=== PATIENT | female | born 1955 | race Caucasian/White ===

== ENCOUNTER 2016-12-01 20:12 | Emergency (ER) | payer OTHER ==
[2016-12-01 21:00] VITALS: TEMP 98.5; BMI 47.5
--- NOTE | 2016-12-01 21:29 | PDOC ---
History of Present Illness - General History Source: Patient Exam Limitations: No Limitations - History of Present Illness Initial Comments: 12/01/16 22:11 The patient is a 61 year old female, with a significant past medical history of CAD s/p cardiac stent, GERD, HTN, HLD, diabetes and fatty liver, who presents to the emergency department with nasal congestion, chest congestion, cough, shortness of breath and headache for the past 3 days. She describes her headache as ranging from mild to moderate, without radiation or modifying factors. She also reports a subjective fever and abdominal cramping associated with her chief complaint. She describes her cough as productive of a green sputum. The patient denies dizziness. Denies fever, chills, nausea, vomit, diarrhea and constipation. Denies dysuria, frequency, urgency and hematuria. Allergies: Advil, ibuprofen Past surgical history: Cholecystectomy, cardiac stent (x1) Social history: No alcohol, tobacco or drug use reported <Sean Lindsay - Last Filed: 12/01/16 22:11> <Jayy Diaz - Last Filed: 12/01/16 23:39> - General Chief Complaint: Shortness of Breath Stated Complaint: SHORTNESS OF BREATH Time Seen by Provider: 12/01/16 21:08 Past History <Sean Lindsay - Last Filed: 12/01/16 22:11> - Past Medical History Anemia: No Asthma: No Cancer: No Cardiac Disorders: Yes (CORONARY ATHEROSCLEROSIS) CVA: No COPD: No CHF: No Dementia: No Diabetes: Yes (IDDM ) GI Disorders: Yes (GERD,NON ULCER DYSPEPSIA) Disorders: No HTN: Yes Hypercholesterolemia: Yes Liver Disease: Yes (fatty liver) Seizures: No Thyroid Disease: No - Surgical History Abdominal Surgery: No Appendectomy: No Cardiac Surgery: Yes (CARDIAC STENT 1X 2004) Cholecystectomy: Yes (2007) Lung Surgery: No Neurologic Surgery: No Orthopedic Surgery: No - Psycho/Social/Smoking Cessation Hx Anxiety: No Suicidal Ideation: No Smoking Status: No Smoking History: Never smoked Have you smoked in the past 12 months: No Number of Cigarettes Smoked Daily: 0 If you are a former smoker, when did you quit?: 2004 Information on smoking cessation initiated: No Hx Alcohol Use: No Drug/Substance Use Hx: No Substance Use Type: None Hx Substance Use Treatment: No <Jayy Diaz - Last Filed: 12/01/16 23:39> - Past Medical History Allergies/Adverse Reactions: Allergies Allergy/AdvReac Type Severity Reaction Status Date / Time ibuprofen Allergy palpitation Verified 12/01/16 20:59 aspirin AdvReac Mild upset Verified 12/01/16 20:59 stomach Home Medications: Ambulatory Orders Insulin Glargine,Hum.rec.anlog [Lantus (nf)] 35 units SQ HS 12/01/16 Lisinopril [Zestril] 40 mg PO DAILY 12/01/16 Metoprolol Tartrate [Lopressor] 50 mg PO BID 12/01/16 Review of Systems - Review of Systems Able to Perform ROS?: Yes Comments:: 12/01/16 22:04 CONSTITUTIONAL: No fever, no chills, no fatigue EYES: No visual changes ENT: +Nasal congestion. No ear pain CARDIOVASCULAR: No chest pain, no palpitations RESPIRATORY: +Cough, shortness of breath. GI: +Abdominal cramping. No nausea, no vomiting, no constipation, no diarrhea GENITOURINARY: No dysuria, no frequency, no hematuria MUSKULOSKELETAL: No backpain, no joint pain, no myalgias SKIN: No rash NEURO: +Headache. <Sean Lindsay - Last Filed: 12/01/16 22:11> *Physical Exam - Vital Signs Last Vital Signs Temp Pulse Resp BP Pulse Ox 98.5 F 86 18 182/97 98 12/01/16 20:56 12/01/16 20:56 12/01/16 20:56 12/01/16 20:56 12/01/16 20:56 - Physical Exam Comments: 12/01/16 22:04 CONSTITUTIONAL: +Morbidly obese, in no apparent distress HEAD: Normocephalic; atraumatic EYES: PERRL; EOM intact ENMT: External appears normal; normal oropharynx NECK: Supple; non-tender; no cervical lymphadenopathy CARD: Normal S1, S2; no murmurs, rubs, or gallops RESP: Normal chest excursion with respiration; breath sounds clear and equal bilaterally; no wheezes, rhonchi, or rales ABD: Soft, non-distended; non-tender; no palpable organomegaly, no palpable hernias EXT: Normal ROM in all four extremities; non-tender to palpation; distal pulses intact SKIN: Warm, dry, no rash NEURO: No focal neurological deficiencies. <Sean Lindsay - Last Filed: 12/01/16 22:11> - Vital Signs Last Vital Signs Temp Pulse Resp BP Pulse Ox 98.5 F 86 18 182/97 98 12/01/16 20:56 12/01/16 20:56 12/01/16 20:56 12/01/16 20:56 12/01/16 20:56 <Jayy Diaz - Last Filed: 12/01/16 23:39> Medical Decision Making - Medical Decision Making 12/01/16 23:37 Patient is a well-appearing 61-year-old female who presents with flulike symptoms for the past 3-4 days. In the ER, patient is awake and alert, nontoxic- appearing, afebrile, mildly hypertensive, with otherwise normal vital signs. Patient is noted to be influenza a or B-. Chest x-ray reveals a questionable left lingular infiltrate. Patient's curb 65 score is 0 patient will be discharged with Zithromax with PMD follow-up. <Jayy Diaz - Last Filed: 12/01/16 23:39> *DC/Admit/Observation/Transfer - Attestations Scribe Attestion: 12/01/16 22:04 Documentation prepared by Sean Lindsay, acting as medical officer for Jayy Diaz MD <Sean Lindsay - Last Filed: 12/01/16 22:11> - Attestations Physician Attestion: 12/01/16 23:36 The documentation was prepared by the scribe under my direct supervision. I have reviewed the documentation which correctly represents the findings, medical decision-making and critical action taken by me. <Jayy Diaz - Last Filed: 12/01/16 23:39> Diagnosis at time of Disposition: Acute bronchitis Qualifiers: Bronchitis organism: unspecified organism Qualified Code(s): J20.9 - Acute bronchitis, unspecified - Discharge Dispostion Disposition: HOME Condition at time of disposition: Stable - Referrals Referrals: Kristen Brown MD [Primary Care Provider] - - Patient Instructions Printed Discharge Instructions: DI for Acute Bronchitis
[2016-12-01] MEDS ORDERED: ACETAMINOPHEN 325 MG TABLET (FP) PO ONE (23:16)
[2016-12-01] MEDS ORDERED: ACETAMINOPHEN 325 MG TABLET (FP) ONE (23:32)
[2016-12-01 23:50] VITALS: BP 166/79; PULSE 84
--- NOTE | 2016-12-02 17:07 | EKG ---
Test Reason : Blood Pressure : / mmHG Vent. Rate : 071 BPM Atrial Rate : 071 BPM P-R Int : 162 ms QRS Dur : 088 ms QT Int : 392 ms P-R-T Axes : 049 -01 020 degrees QTc Int : 425 ms NORMAL SINUS RHYTHM MINIMAL VOLTAGE CRITERIA FOR LVH, MAY BE NORMAL VARIANT BORDERLINE ECG WHEN COMPARED WITH ECG OF 13-NOV-2015 03:02, NO SIGNIFICANT CHANGE WAS FOUND Confirmed by ADAM SHEPHERD, ELVIRA ([id number]) on 12/02/2016 5:07:21 PM Referred By: Confirmed By:ELVIRA MEDINA MD
--- NOTE | 2016-12-06 16:05 | EKG ---
Test Reason : Blood Pressure : / mmHG Vent. Rate : 096 BPM Atrial Rate : 096 BPM P-R Int : 154 ms QRS Dur : 084 ms QT Int : 350 ms P-R-T Axes : 040 -02 016 degrees QTc Int : 442 ms NORMAL SINUS RHYTHM POSSIBLE LEFT ATRIAL ENLARGEMENT BORDERLINE ECG WHEN COMPARED WITH ECG OF 13-NOV-2015 03:02, NO SIGNIFICANT CHANGE WAS FOUND Confirmed by MELVIN GOINS MD ([id number]) on 12/06/2016 4:05:23 PM Referred By: Confirmed By:EMLVIN GOINS MD
== END 2016-12-01 23:50 | disposition home or self-care (01) ==
LOC: SUPCPDRO 20:12 → JER 20:12
DX: J20.9 Acute bronchitis, unspecified (principal); E11.9 Type 2 diabetes mellitus without complications; Z79.4 Long term (current) use of insulin; I10 Essential (primary) hypertension; E78.00 Pure hypercholesterolemia, unspecified; Z95.5 Presence of coronary angioplasty implant and graft; Z87.891 Personal history of nicotine dependence; K76.0 Fatty (change of) liver, not elsewhere classified; K21.9 Gastro-esophageal reflux disease without esophagitis
CPT/HCPCS: 71020-TC; 87804; 93005; 93010; 99283-25

== ENCOUNTER 2018-07-05 20:44 | Observation (INO) | payer OTHER ==
--- NOTE | 2018-07-05 20:57 | PDOC ---
Rapid Medical Evaluation Chief Complaint: Chest Pain Time Seen by Provider: 07/05/18 20:51 Medical Evaluation: Allergies Allergy/AdvReac Type Severity Reaction Status Date / Time ibuprofen Allergy palpitation Verified 12/01/16 20:59 aspirin AdvReac Mild upset Verified 12/01/16 20:59 stomach 07/05/18 20:52 shortness of breath on the plane en route to [place] from [place] 2 days ago . today with right thigh pain radiating from hip to knee and right sided chest pain. took one baby aspirin prior to arrival PE: patient alert ox 3. breath sounds clear. A: chest pain , right thigh pain P; labs, d- dimer Patient to the ER for further management 07/05/18 20:57 Discharge Disposition - Diagnosis Chest pain at rest, Right thigh pain - Referrals - Patient Instructions - Post Discharge Activity
[2018-07-05 21:23] VITALS: BMI 39.3
--- NOTE | 2018-07-05 21:52 | PDOC ---
History of Present Illness - History of Present Illness Initial Comments: 07/05/18 22:22 Patient is a 63 year old female with a significant past medical history of HTN, DM2, Anemia, CAD and Depression. Chronic shoulder him, who presents to the ED with complaints of right sided chest pain that began yesterday afternoon. Patient reports experiencing right sided chest pain as well as associated symptoms of right sided inner leg pain that she states radiates up towards her groin, head pain. She reports returning from [place] on Tuesday where she states she experiencing sudden Sob while on the plane. Denies nausea, vomiting. Denies fevers, chills. Denies contact with sick individuals, out of state travelling. Denies dysuria, hematuria. Denies diarrhea , constipation. Denies any other symptoms. Allergies: Ibuprofen, aspirin. Social history: Former smoker. No alcohol. No illicit drugs. Surgical history: Cardiac stent, tubal ligation and right sided biopsy, and tubal light, PMD: None <Rafita Bell - Last Filed: 07/05/18 22:22> - General History Source: Patient Exam Limitations: No Limitations <Anitha Tavares - Last Filed: 07/06/18 04:10> - General Chief Complaint: Chest Pain Stated Complaint: DIABETIC, LT TOE INJURY, PAIN Time Seen by Provider: 07/05/18 20:51 Past History <Rafita Bell - Last Filed: 07/05/18 22:22> - Past Medical History Anemia: No Asthma: No Cancer: No Cardiac Disorders: Yes (CORONARY ATHEROSCLEROSIS) CVA: No COPD: No CHF: No Dementia: No Diabetes: Yes (IDDM ) GI Disorders: Yes (GERD,NON ULCER DYSPEPSIA) Disorders: No HTN: Yes Hypercholesterolemia: Yes Liver Disease: Yes (fatty liver) Seizures: No Thyroid Disease: No - Surgical History Abdominal Surgery: No Appendectomy: No Cardiac Surgery: Yes (CARDIAC STENT 1X 2004) Cholecystectomy: Yes (2007) Lung Surgery: No Neurologic Surgery: No Orthopedic Surgery: No - Suicide/Smoking/Psychosocial Hx Smoking Status: No Smoking History: Never smoked Have you smoked in the past 12 months: No Number of Cigarettes Smoked Daily: 0 If you are a former smoker, when did you quit?: 2004 Information on smoking cessation initiated: No Hx Alcohol Use: No Drug/Substance Use Hx: No Substance Use Type: None Hx Substance Use Treatment: No <Anitha Tavares - Last Filed: 07/06/18 04:10> - Past Medical History Allergies/Adverse Reactions: Allergies Allergy/AdvReac Type Severity Reaction Status Date / Time ibuprofen Allergy palpitation Verified 07/05/18 21:23 aspirin AdvReac Mild upset Verified 07/05/18 21:23 stomach Home Medications: Ambulatory Orders Insulin Glargine,Hum.rec.anlog [Lantus (nf)] 25 units SQ HS 12/01/16 Lisinopril [Zestril] 40 mg PO DAILY 12/01/16 Cholecalciferol (Vitamin D3) [Vitamin D3] 50,000 unit PO WEEKLY 12/13/16 Glyburide 2.5 mg PO BID 12/13/16 Linagliptin [Tradjenta] 5 mg PO DAILY 12/13/16 Metoprolol Succinate [Toprol Xl -] 50 mg PO DAILY 12/13/16 Simvastatin [Zocor -] 40 mg PO HS 12/13/16 Vitamin B Complex [B Complex] 1 each PO DAILY 12/13/16 metFORMIN HCL [Glucophage -] 500 mg PO BID 12/13/16 Amlodipine Besylate [Norvasc -] 5 mg PO DAILY 08/17/17 Cyclobenzaprine HCl [Flexeril 10 mg] 10 mg PO BID PRN #60 tablet 05/25/18 Docusate Sodium [Colace -] 100 mg PO TID #90 capsule 05/25/18 Oxycodone HCl/Acetaminophen [Percocet 5-325 mg Tablet] 1 tab PO TID PRN #70 tab MDD 3 05/25/18 Cyclobenzaprine HCl [Flexeril -] 10 mg PO HS PRN MDD 10 mg 07/06/18 Review of Systems - Review of Systems Able to Perform ROS?: Yes Comments:: 07/05/18 22:22 GENERAL/CONSTITUTIONAL: No: fever, chills, weakness, loss of appetite. HEAD, EYES, EARS, NOSE AND THROAT: No: change in vision, ear pain, discharge, sore throat, throat swelling. CARDIOVASCULAR: +right sided chest pain. No: chest pain, lightheadedness, palpitations, syncope RESPIRATORY: +shortness of breath. No: cough, wheezing, hemoptysis, stridor. GASTROINTESTINAL: No: nausea, vomiting, abdominal cramping, diarrhea, rectal bleeding, constipation. GENITOURINARY: No: dysuria, hematuria, frequency, urgency, flank pain. MUSCULOSKELETAL: +right upper thigh pain. No: back pain, neck pain, joint pain SKIN: No: lesions, pallor, rash or easy bruising. NEUROLOGIC: No: headache, vertigo, paresthesias, weakness ENDOCRINE: No: unexplained weight gain or loss HEMATOLOGIC/LYMPHATIC: No: anemia, easy bleeding, swelling nodes <Rafita Bell - Last Filed: 07/05/18 22:22> *Physical Exam - Vital Signs Last Vital Signs Temp Pulse Resp BP Pulse Ox 97.7 F 81 16 208/103 H 99 07/05/18 20:50 07/05/18 20:50 07/05/18 20:50 07/05/18 20:50 07/05/18 20:50 - Physical Exam Comments: 07/05/18 22:22 GENERAL: The patient is in no acute distress. HEAD: Normal with no signs of trauma. EYES: PERRLA, EOMI, sclera anicteric, conjunctiva clear. ENT: Ears normal, nares patent, oropharynx clear without exudates. Moist mucous membranes. NECK: Normal range of motion, supple without lymphadenopathy, JVD, or masses. LUNGS: Breath sounds equal, clear to auscultation bilaterally. No wheezes, and no crackles. HEART:Regular rate and rhythm, normal S1 and S2 without murmur, rub or gallop. ABDOMEN: Soft, nontender, normoactive bowel sounds. No guarding, no rebound. EXTREMITIES: +Pain to right proximal thigh. +Pain to right groin. +2 plus dorsalis pedis pulses. Normal range of motion, no edema. No clubbing or cyanosis. No erythema, or tenderness. NEUROLOGICAL: Cranial nerves II through XII grossly intact. Normal speech. No focal neurological deficits. MUSCULOSKELETAL: Back nontender to palpation, no CVA tenderness SKIN: Warm, Dry, normal turgor, no rashes or lesions noted. <Rafita Bell - Last Filed: 07/05/18 22:22> - Vital Signs Last Vital Signs Temp Pulse Resp BP Pulse Ox 97.7 F 81 16 208/103 H 99 07/05/18 20:50 07/05/18 20:50 07/05/18 20:50 07/05/18 20:50 07/05/18 20:50 <Anitha Tavares - Last Filed: 07/06/18 04:10> Heart Score/ECG Review - History History: Slightly suspicious - Electrocardiogram EKG: Normal - Age Age: 45-65 - Risk Factors Risk Factors Heart Score: Yes Hx Hypertension, Yes Hx Diabetes, Yes Hx Obesity Based on the list above the patient has:: >/=3 risk factors or Hx atherosclerotic disease - Troponin Troponin: </= normal limit - Score Heart Score - Total: 3 <Anitha Tavares - Last Filed: 07/06/18 04:10> ED Treatment Course - LABORATORY CBC & Chemistry Diagram: 07/05/18 22:50 07/05/18 22:50 <Anitha Tavares - Last Filed: 07/06/18 04:10> Medical Decision Making - Medical Decision Making 07/05/18 22:36 Ms Luna is a 63 yo F presenting with a complaint of: Right sided chest pain - present 2 days ago, self resolved, no radiation, no exertional component Pt noted right sided thigh pain with radiated up to her groin, yesterday and today (pain has improved but has not resolved) Pt s/p recent flight from [place] (2 days ago) No fevers, chills cough Pt has a h/o ? TIA vs CVA (right sided weakness - 2004; ACS s/p RCA stent - 2004 ) Exam: RRR CTA No chest wall tenderness to palpation No abdominal tenderness Right thigh and groin tender to palpation 2+ DP bilaterally EKG: NSR rate of 71 bpm, axis nml, intervals nml, no st elevation or elevation, t waves upright 07/06/18 00:14 Repeat BP : 170s/80 Laboratory Tests 07/05/18 07/05/18 22:50 22:50 WBC 6.4 Hgb 13.2 Hct 39.6 Plt Count 203 BUN 16 Creatinine 0.9 AST 38 H ALT 99 H Creatine Kinase 267 H Troponin I 0.10 H B-Natriuretic Peptide 80.4 07/06/18 00:[address] and claimed that she is allergic to contrast Pt states her allergy was that she felt sick and had to stay in the hospital for 1 week after she had contrast She refuses coumadin, plavix, anticoagulants as in the past she has taken it and it resulted in bruising Will place on observation to tele given h/o ACS, HTN, HLD 07/06/18 01:11 07/06/18 03:24 Duplex NEGATIVE 07/06/18 04:08 <Anitha Tavares - Last Filed: 07/06/18 04:10> *DC/Admit/Observation/Transfer - Attestations Scribe Attestion: 07/05/18 22:23 Documentation prepared by Rafita Bell, acting as medical technicians for Anitha Tavares MD. <Rafita Bell - Last Filed: 07/05/18 22:22> - Discharge Dispostion Decision to Admit order: Yes <Anitha Tavares - Last Filed: 07/06/18 04:10> Diagnosis at time of Disposition: Chest pain at rest, Right thigh pain - Discharge Dispostion Condition at time of disposition: Stable
[2018-07-05 23:14] LABS: EOS % 3.5 % (0-4.5); HEMATOCRIT 39.6 % (32.4-45.2); HEMOGLOBIN 13.2 GM/dL (10.7-15.3); LYMPH % 29.5 % (8-40); MCH 29.8 pg (25.7-33.7); MCHC 33.4 g/dl (32.0-36.0); MEAN CELL VOLUME 89.5 fl (80-96); MEAN PLT VOLUME 9.4 fl (7.5-11.1); MONO % 8.3 % (3.8-10.2); NEUT % 57.7 % (42.8-82.8); PLATELET COUNT 203 K/MM3 (134-434); RBC 4.43 M/mm3 (3.60-5.2); WHITE BLOOD COUNT 6.4 K/mm3 (4.0-10.0)
[2018-07-06 00:06] LABS: ALBUMIN 3.8 g/dl (3.4-5.0); ALK PHOS 114 U/L (45-117); ANION GAP 8 MMOL/L (8-16); BILIRUBIN,TOTAL 0.4 mg/dL (0.2-1); BLOOD UREA NITROGEN 16 mg/dL (7-18); CALCIUM 8.5 mg/dL (8.5-10.1); CHLORIDE 105 mmol/L (98-107); CO2 28 mmol/L (21-32); CREATININE 0.9 mg/dL (0.55-1.3); GLUCOSE,RANDOM 153 mg/dL (74-106); MAGNESIUM 2.2 mg/dL (1.8-2.4); N-TERMINAL BNP 80.4 pg/ml (5-125); POTASSIUM 4.1 mmol/L (3.5-5.1); SGOT/AST 38 U/L (15-37); SGPT/ALT 99 U/L (13-61); SODIUM 140 mmol/L (136-145); TOT PROT 7.4 g/dl (6.4-8.2)
--- NOTE | 2018-07-06 02:51 | HP ---
CHIEF COMPLAINT: R leg pain x1 day PCP: HISTORY OF PRESENT ILLNESS: Pt is a 63 Yo F with PMHx HLD, HTN, CAD s/p stents 2004, DM, Depression, GERD, presenting with a day's hx of R LLE pain. Pt reports a constant dull pain radiating from R thigh to R groin area. The pain was severe enough to prevent her from walking today. She attempted rubbing the area, but denies any known relieving factors. No hx of trauma, no swelling, no bug bites. No hx of similar pain in past. Pt reports recently traveling from [place] [employer] yesterday, where she had a transient episode of SOB with exertion. She also reported right sided breast pain. No associated breast trauma , no radiation, no shortness of breast. Pain is also present on deep palpation of the R breast. She had a biopsy done several years ago and followed up at the breast cancer center in [place], for which she reports it a normal follow up. No hx of syncope, palpitations or chest pain. No headache, no fevers. Pt denies taking her bp medications today. She however said she took ASA today when she felt the leg pain , with no adverse effects despite the documentation that she is allergic. Patient presented to ED today and was noted to have an elevated BP of 208/103. She was not hypoxic or tachycardic at presentation. Per ED noted the blood pressure dropped (without medication). Pt initially refused to get contrast for a CTA in the ED. Per ED she also reported using anticoagulation in the past and would not want to be anticoagulated. Pt is unsure if she has stents, but per chart she is s/p stents in 2004. She described a previous nuclear stress test, unsure when ER course was notable for: (1)Trops-0.10, BP 208/103, EKG- NSR, Vent rate-71bpm, nl axis, no hayde/std, nl DE interval, QTC 443 (2) CXR- yet to be read, by my read, shows no acute pathology (3) LE duplex Recent Travel: PAST MEDICAL HISTORY: As in HPI PAST SURGICAL HISTORY: Cardiac stent, tubal ligation and right breast biopsy, Social History: Smoking: Denies Alcohol:Denies Drugs: Denies Family History: Allergies ibuprofen Allergy (Verified 07/05/18 21:23) palpitation aspirin Adverse Reaction (Mild, Verified 07/05/18 21:23) upset stomach HOME MEDICATIONS: Home Medications Medication Instructions Recorded Insulin Glargine,Hum.rec.anlog 25 units SQ HS 12/01/16 [Lantus (nf)] Lisinopril [Zestril] 40 mg PO DAILY 12/01/16 Cholecalciferol (Vitamin D3) 50,000 unit PO WEEKLY 12/13/16 [Vitamin D3] Glyburide 2.5 mg PO BID 12/13/16 Linagliptin [Tradjenta] 5 mg PO DAILY 12/13/16 Metoprolol Succinate [Toprol Xl -] 50 mg PO DAILY 12/13/16 Simvastatin [Zocor -] 40 mg PO HS 12/13/16 Vitamin B Complex [B Complex] 1 each PO DAILY 12/13/16 metFORMIN HCL [Glucophage -] 500 mg PO BID 12/13/16 Amlodipine Besylate [Norvasc -] 5 mg PO DAILY 08/17/17 Cyclobenzaprine HCl [Flexeril -] 10 mg PO TID #21 tablet 05/25/18 Cyclobenzaprine HCl [Flexeril 10 10 mg PO BID PRN #60 tablet 05/25/18 mg] Docusate Sodium [Colace -] 100 mg PO TID #90 capsule 05/25/18 Oxycodone HCl/Acetaminophen 1 tab PO TID PRN #70 tab MDD 3 05/25/18 [Percocet 5-325 mg Tablet] REVIEW OF SYSTEMS CONSTITUTIONAL: Absent: fever, chills, diaphoresis, generalized weakness, malaise, loss of appetite, weight change HEENT: Absent: rhinorrhea, nasal congestion, throat pain, throat swelling, difficulty swallowing, mouth swelling, ear pain, eye pain, visual changes CARDIOVASCULAR: Absent: chest pain, syncope, palpitations, irregular heart rate, lightheadedness , peripheral edema RESPIRATORY: Absent: cough, shortness of breath, dyspnea with exertion, orthopnea, wheezing, stridor, hemoptysis GASTROINTESTINAL: Absent: abdominal pain, abdominal distension, nausea, vomiting, diarrhea, constipation, melena, hematochezia GENITOURINARY: Absent: dysuria, frequency, urgency, hesitancy, hematuria, flank pain, genital pain MUSCULOSKELETAL: Absent: myalgia, arthralgia, joint swelling, back pain, neck pain SKIN: Absent: rash, itching, pallor HEMATOLOGIC/IMMUNOLOGIC: Absent: easy bleeding, easy bruising, lymphadenopathy, frequent infections ENDOCRINE: Absent: unexplained weight gain, unexplained weight loss, heat intolerance, cold intolerance NEUROLOGIC: Absent: headache, focal weakness or paresthesias, dizziness, unsteady gait, seizure, mental status changes, bladder or bowel incontinence PSYCHIATRIC: Absent: anxiety, depression, suicidal or homicidal ideation, hallucinations. PHYSICAL EXAMINATION Vital Signs - 24 hr 07/05/18 07/06/18 20:50 01:47 Temperature 97.7 F Pulse Rate 81 Pulse Rate [ 88 Left Radial] Respiratory 16 19 Rate Blood Pressure 208/103 H Blood Pressure 172/94 H [Right Arm] O2 Sat by Pulse 99 Oximetry (%) GENERAL: Obese, Awake, alert, and fully oriented, in no acute respiratory distress. EYES: Pupils equal, round and reactive to light, extraocular movements intact, EARS, NOSE, THROAT: Moist mucous membranes. NECK: supple LUNGS: Breath sounds equal, clear to auscultation bilaterally. No wheezes, and no crackles. HEART: Regular rate and rhythm, normal S1 and S2 without murmur, rub or gallop. ABDOMEN: Obese, Soft, nontender, not distended, normoactive bowel sounds, MUSCULOSKELETAL: Normal range of motion at all joints. LOWER EXTREMITIES: 2+ pulses, warm, well-perfused. No calf tenderness. No peripheral edema. NEUROLOGICAL: AAOx3, no lateralizing signs. Symmetrical face, able to move all extremities. Cranial nerves II-XII intact. Normal speech. PSYCHIATRIC: Close to tears CBC, BMP 07/05/18 22:50 07/05/18 22:50 Laboratory Results - last 24 hr 07/05/18 07/05/18 07/05/18 22:50 22:50 22:50 WBC 6.4 RBC 4.43 Hgb 13.2 Hct 39.6 MCV 89.5 MCH 29.8 MCHC 33.4 RDW 14.0 Plt Count 203 MPV 9.4 Absolute Neuts (auto) 3.7 Neutrophils % 57.7 Lymphocytes % 29.5 Monocytes % 8.3 Eosinophils % 3.5 Basophils % 1.0 Nucleated RBC % 0 PT with INR Cancelled INR Cancelled D-Dimer Cancelled Sodium Potassium Chloride Carbon Dioxide Anion Gap BUN Creatinine Creat Clearance w eGFR Random Glucose Calcium Magnesium Total Bilirubin AST ALT Alkaline Phosphatase Creatine Kinase Creatine Kinase Index CK-MB (CK-2) Troponin I B-Natriuretic Peptide Total Protein Albumin 07/05/18 22:50 WBC RBC Hgb Hct MCV MCH MCHC RDW Plt Count MPV Absolute Neuts (auto) Neutrophils % Lymphocytes % Monocytes % Eosinophils % Basophils % Nucleated RBC % PT with INR INR D-Dimer Sodium 140 Potassium 4.1 Chloride 105 Carbon Dioxide 28 Anion Gap 8 BUN 16 Creatinine 0.9 Creat Clearance w eGFR > 60 Random Glucose 153 H Calcium 8.5 Magnesium 2.2 Total Bilirubin 0.4 AST 38 H ALT 99 H Alkaline Phosphatase 114 Creatine Kinase 267 H Creatine Kinase Index 0.8 CK-MB (CK-2) 2.3 Troponin I 0.10 H B-Natriuretic Peptide 80.4 Total Protein 7.4 Albumin 3.8 Ambulatory Orders Insulin Glargine,Hum.rec.anlog [Lantus (nf)] 25 units SQ HS 12/01/16 Lisinopril [Zestril] 40 mg PO DAILY 12/01/16 Cholecalciferol (Vitamin D3) [Vitamin D3] 50,000 unit PO WEEKLY 12/13/16 Glyburide 2.5 mg PO BID 12/13/16 Linagliptin [Tradjenta] 5 mg PO DAILY 12/13/16 Metoprolol Succinate [Toprol Xl -] 50 mg PO DAILY 12/13/16 Simvastatin [Zocor -] 40 mg PO HS 12/13/16 Vitamin B Complex [B Complex] 1 each PO DAILY 12/13/16 metFORMIN HCL [Glucophage -] 500 mg PO BID 12/13/16 Amlodipine Besylate [Norvasc -] 5 mg PO DAILY 08/17/17 Cyclobenzaprine HCl [Flexeril 10 mg] 10 mg PO BID PRN #60 tablet 05/25/18 Docusate Sodium [Colace -] 100 mg PO TID #90 capsule 05/25/18 Oxycodone HCl/Acetaminophen [Percocet 5-325 mg Tablet] 1 tab PO TID PRN #70 tab MDD 3 05/25/18 Cyclobenzaprine HCl [Flexeril -] 10 mg PO HS PRN MDD 10 mg 07/06/18 Current Medications Acetaminophen (Tylenol -) 325 mg PO Q8H PRN PRN Reason: PAIN LEVEL 6-10 Amlodipine Besylate (Norvasc -) 5 mg PO DAILY [facility] Aspirin (Ecotrin -) 81 mg PO DAILY [facility] Atorvastatin Calcium (Lipitor -) 20 mg PO HS [facility] Cyclobenzaprine HCl (Flexeril -) 10 mg PO HS PRN PRN Reason: BACK PAIN Docusate Sodium (Colace -) 100 mg PO TID [facility] Insulin Aspart (Novolog Vial Sliding Scale -) 1 vial SQ ACHS [facility]; Protocol Insulin Detemir (Levemir Vial) 25 units SQ HS [facility] Lisinopril (Prinivil) 40 mg PO DAILY [facility] Metoprolol Succinate (Toprol Xl -) 50 mg PO DAILY [facility] Multivitamins (Total B With C -) 1 each PO DAILY [facility] Non-Formulary Medication (Cholecalciferol (Vitamin D3) [Vitamin D3]) 50,000 unit PO WEEKLY [facility] Oxycodone HCl (Roxicodone -) 5 mg PO Q8H PRN PRN Reason: PAIN LEVEL 6-10 ASSESSMENT/PLAN: Pt is a 63 Yo F with PMHx HLD, HTN, CAD s/p stents 2004, DM, Depression, GERD, presenting with a day's hx of R LLE pain. Pt reports a constant dull pain radiating from R thigh to R groin area. Atypical chest pain R/O ACS R breast pain,non pleuritic, reproducible, hx of CAD with stents trops 0.1 trend trops EKG wnl Cardiology consult- Dr Otoole R/O PE Recent trip from [place], R leg pain Hx of SOB on plane, R breast pain CTA R leg pain R/O DVT Duplex US - no DVTs bilaterally Well's Score for PE- 4 HTNsive emergency, Pt with elevated trops, ekg wnl BP 208/103 on presentation, down to 174/93, pt did not take home meds today Cont lisinopril 40mg Amlodipine 5mg Toprol 50mg daily Amlodipine 5mg R breast pain No hx of trauma, no obvious masses, bruise or ulcers Pt had prior rt breast biopsy, not sure what it showed Breast US R/O cyst HLD, Takes simvastatin 40mg daily cont CAD s/p stents 2004, Cont ASA Toprol Lisinopril DM, ISS ACHS BGM ACHS Cont home levemir 25UHS Hold oral hypoglycemic agents Depression, No home meds noted Monitor GERD No home meds noted, monitor FEN No standing fluids Monitor lytes replete as needed DM/Sodium controlled diet PPx heparin sq Dispo: Obs tele Visit type - Emergency Visit Emergency Visit: Yes ED Registration Date: 07/06/18 Care time: The patient presented to the Emergency Department on the above date and was hospitalized for further evaluation of their emergent condition. - New Patient This patient is new to me today: Yes Date on this admission: 07/06/18 - Critical Care Critical Care patient: No
[2018-07-06] MEDS ORDERED: CYCLOBENZAPRINE HCL 10 MG TABLET (FP) PO PRN (02:54)
[2018-07-06] MEDS ORDERED: oxyCODONE HCL 5 MG TABLET PO PRN (03:18)
[2018-07-06] MEDS ORDERED: ACETAMINOPHEN 325 MG TABLET (FP) PO PRN (03:19)
--- NOTE | 2018-07-06 04:22 | PN ---
Teaching Attending Note Name of Resident: Aliya Perkins ATTENDING PHYSICIAN STATEMENT I saw and evaluated the patient. I reviewed the resident's note and discussed the case with the resident. I agree with the resident's findings and plan as documented. SUBJECTIVE: Seen and examined; she is a 63 y/o HF with a PMH as documented. She presents to the ER tonight for a variety of complaints. She has L-toenail discoloration , R-leg pain, and has R-breast pain. She is a somewhat poor historian. She was flying into town from [place] when she started to have what was initially described to me as chest pain but on further discussion with her appears to be breast pain that is reproducible with palpation of the breast. The R-leg pain starts on the medial knee and radiates up the R-side to her groin. Worse with activity, etc. Denies any brian CP or SOB. Afebrile and hemodynamically stable. Found to have a positive troponin in the ER. Initially she told me she had no cardiac history but review of her chart shows she had a stent placed <10 years ago. Echo done >5 years ago shows possible diastolic dysfunction. PMH: Chronic pain on opiates, obesity, anxiety, depression, CAD s/p PCI, DM, HLD PSH: Prior angiogram FH: Father with heart disease Social: Former smoker, no current EtOH or ilicits OBJECTIVE: VSS, labs reviewed NAD, resting in bed on RA RRR s1/2 no mgr Lungs clear but limited exam Legs enlarged bilaterally sym with no redness NT ND +BS Normal behavior, anxious mood EKG NSR with no suspicious ST-T changes ASSESSMENT AND PLAN: 1) Elevated Troponin -Atypical sx with the pain actually located in her breast on examination. Given SBP >200 this could be related to HTN emergency, however the patient does have risk factors for CAD so will need to r/o this. -Monitor tele, trend troponin, consult cardiology 2) Hypertensive Emergency -Improved to 170s; continue home meds and can use PRNs, adjusting basal meds as needed -Asx at this juncture -Check Echo 3) Leg Pain -Checking US to r/o DVT 4) Breast Pain -US breast to r/o any cysts, etc. though this wasn't palpated 5) Chronic Back Pain -Continue home meds 6) DM -SSI 7) STEVE 8) CAD -Continue home ASA, BB, statin 9) HLD -Continue home statin, check lipids Full Code
[2018-07-06] MEDS ORDERED: amLODIPine BESYLATE 5 MG TABLET (FP) ONE ×2 (05:50→11:59)
[2018-07-06] MEDS: INSULIN SLIDING SCALE (NOVOLOG) 1 VIAL SQ SCH ×4 (07:06→22:46)
[2018-07-06] MEDS ORDERED: DOCUSATE SODIUM 100 MG CAPSULE (FP) PO ONE (07:07)
[2018-07-06] MEDS ORDERED: HEPARIN NA (PORCINE) 5,000 UNITS/ML 1ML VIAL ONE (07:07)
[2018-07-06] MEDS: DOCUSATE SODIUM 100 MG CAPSULE (FP) PO SCH ×3 (07:10→22:44)
[2018-07-06] MEDS: HEPARIN NA (PORCINE) 5,000 UNITS/ML 1ML VIAL SQ SCH ×3 (07:11→22:44)
[2018-07-06] MEDS: amLODIPine BESYLATE 5 MG TABLET (FP) PO ONE ×2 (07:40)
[2018-07-06 07:42] LABS: INR 0.93 (0.83-1.09)
[2018-07-06 07:45] LABS: ACTIVATED PTT 19.8 SECONDS (25.2-36.5)
[2018-07-06] MEDS ORDERED: amLODIPine BESYLATE 5 MG TABLET (FP) PO SCH (10:00)
[2018-07-06] MEDS ORDERED: amLODIPine BESYLATE 5 MG TABLET (FP) PO ONE (10:31)
[2018-07-06] MEDS: ASPIRIN COATED 81 MG TABLET.EC PO SCH (12:16)
[2018-07-06] MEDS: LISINOPRIL 20 MG TABLET (FP) PO SCH (12:16)
--- NOTE | 2018-07-06 12:16 | EKG ---
Test Reason : Blood Pressure : / mmHG Vent. Rate : 071 BPM Atrial Rate : 071 BPM P-R Int : 160 ms QRS Dur : 090 ms QT Int : 408 ms P-R-T Axes : 047 -01 022 degrees QTc Int : 443 ms NORMAL SINUS RHYTHM WITH SINUS ARRHYTHMIA NORMAL ECG WHEN COMPARED WITH ECG OF 01-DEC-2016 22:40, NO SIGNIFICANT CHANGE WAS FOUND Confirmed by ELVIRA MEDINA MD ([id number]) on 07/06/2018 12:15:54 PM Referred By: Confirmed By:ELVIRA MEDINA MD
[2018-07-06] MEDS: VITAMIN B COMPLEX W/C COMBO TABLET (FP) PO SCH (12:17)
--- NOTE | 2018-07-06 12:32 | ECHO ---
Name: VIVIANA TAYLOR Exam:Adult Echocardiogram Study Date: 07/06/2018 08:29 AM Age: 63 yrs Reason For Study: H/O ?DIASTOLIC DYSFUNCTION,P/W HTN Height: 62 in Weight: 215 lb BSA: 2.0 m2 MMode/2D Measurements & Calculations IVSd: 1.3 cm Ao root diam: 4.1 cm LVIDd: 4.8 cm LA dimension: 4.1 cm LVIDs: 2.8 cm ACS: 1.9 cm LVPWd: 1.2 cm IVSs: 1.6 cm LVPWs: 1.4 cm EDV(Teich): 108.5 ml ESV(Teich): 29.8 ml Doppler Measurements & Calculations MV E max rogelio: 42.3 cm/sec Ao V2 max: 107.2 cm/sec MV A max rogelio: 60.7 cm/sec Ao max P.6 mmHg MV E/A: 0.70 Ao V2 mean: 69.2 cm/sec Ao mean P.2 mmHg Ao V2 VTI: 19.5 cm TR max rogelio: 207.0 cm/sec Med Peak E' Rogelio: 5.2 cm/sec TR max P.1 mmHg Med E/e': 8.2 Lat Peak E' Rogelio: 6.4 cm/sec Lat E/e': 6.6 Procedure A complete two-dimensional transthoracic echocardiogram was performed (2D, M-mode, Doppler and color flow Doppler). Left Ventricle There is mild concentric left ventricular hypertrophy. The left ventricular ejection fraction is norm al. Ejection Fraction = 55-60%. The left ventricular wall motion is normal. Right Ventricle The right ventricle is normal in size and function. Atria Normal left and right atrial size and function. Mitral Valve There is no mitral regurgitation noted. Tricuspid Valve There is trace tricuspid regurgitation. There was insufficient TR detected to calculate RV systolic p ressure. Aortic Valve The aortic valve is trileaflet. No hemodynamically significant valvular aortic stenosis. No aortic regurgitation is present. Pulmonic Valve There is no pulmonic valvular regurgitation. Great Vessels Mild aortic root dilatation. Pericardium/Pleura There is no pericardial effusion. Interpretation Summary There is mild concentric left ventricular hypertrophy. The left ventricular ejection fraction is normal. The right ventricle is normal in size and function. There is trace tricuspid regurgitation. Mild aortic root dilatation. MD Garry Stanton 07/06/2018 12:32 PM
--- NOTE | 2018-07-06 15:30 | PN ---
Physical Exam: SUBJECTIVE: Patient seen and examined this morning in the ED. Says she experienced 10/10, cramping right thigh pain that radiated to her groin. Additionally experienced 8/10, constant, dull Right breast pain reproducible with palpation. All pains have resolved. Patient denies any trauma or rash over the areas. OBJECTIVE: Vital Signs Period Temp Pulse Resp BP Sys/Bhatia Pulse Ox Last 24 Hr 97.7 F-98.5 F 81-90 16-19 172-208/94-103 99 GENERAL: A&Ox3, NAD, Seen ambulating around the ED HEAD: NCAT EYES: PERRL, EOMI ENT: Oropharynx clear without exudates, moist mucous membranes. NECK: No JVD LUNGS: Breath sounds equal, clear to auscultation bilaterally, no wheezes HEART: Regular rate and rhythm, S1, S2 without murmur ABDOMEN: Obese, Soft, nontender, nondistended, + bowel sounds, no guarding EXTREMITIES: 2+ pulses, no edema. NEUROLOGICAL: Cranial nerves II through XII grossly intact. Normal speech, Able to ambulate without difficulty, C5-T1 and L4-S1 gross sensation intact. 5/5 muscle strength globally Laboratory Results - last 24 hr 07/05/18 07/05/18 07/05/18 07:00 22:50 22:50 WBC 6.4 Corrected WBC (auto) RBC 4.43 Hgb 13.2 Hct 39.6 MCV 89.5 MCH 29.8 MCHC 33.4 RDW 14.0 Plt Count 203 MPV 9.4 Absolute Neuts (auto) 3.7 Neutrophils % 57.7 Lymphocytes % 29.5 Monocytes % 8.3 Eosinophils % 3.5 Basophils % 1.0 Nucleated RBC % 0 Platelet Estimate Platelet Comment PT with INR Cancelled INR Cancelled PTT (Actin FS) D-Dimer 613 H Sodium Potassium Chloride Carbon Dioxide Anion Gap BUN Creatinine Creat Clearance w eGFR POC Glucometer Random Glucose Calcium Phosphorus Magnesium Total Bilirubin AST ALT Alkaline Phosphatase Creatine Kinase Creatine Kinase Index CK-MB (CK-2) Troponin I B-Natriuretic Peptide Total Protein Albumin Triglycerides Cholesterol Total LDL Cholesterol HDL Cholesterol 07/05/18 07/05/18 07/06/18 22:50 22:50 07:00 WBC Cancelled Corrected WBC (auto) Cancelled RBC Cancelled Hgb Cancelled Hct Cancelled MCV Cancelled MCH Cancelled MCHC Cancelled RDW Cancelled Plt Count Cancelled MPV Cancelled Absolute Neuts (auto) Cancelled Neutrophils % Cancelled Lymphocytes % Cancelled Monocytes % Cancelled Eosinophils % Cancelled Basophils % Cancelled Nucleated RBC % Cancelled Platelet Estimate Cancelled Platelet Comment Cancelled PT with INR INR PTT (Actin FS) D-Dimer Cancelled Sodium 140 Potassium 4.1 Chloride 105 Carbon Dioxide 28 Anion Gap 8 BUN 16 Creatinine 0.9 Creat Clearance w eGFR > 60 POC Glucometer Random Glucose 153 H Calcium 8.5 Phosphorus Magnesium 2.2 Total Bilirubin 0.4 AST 38 H ALT 99 H Alkaline Phosphatase 114 Creatine Kinase 267 H Creatine Kinase Index 0.8 CK-MB (CK-2) 2.3 Troponin I 0.10 H B-Natriuretic Peptide 80.4 Total Protein 7.4 Albumin 3.8 Triglycerides Cholesterol Total LDL Cholesterol HDL Cholesterol 07/06/18 07/06/18 07/06/18 07:00 07:00 12:51 WBC Corrected WBC (auto) RBC Hgb Hct MCV MCH MCHC RDW Plt Count MPV Absolute Neuts (auto) Neutrophils % Lymphocytes % Monocytes % Eosinophils % Basophils % Nucleated RBC % Platelet Estimate Platelet Comment PT with INR 11.00 INR 0.93 PTT (Actin FS) 19.8 L D-Dimer Sodium Cancelled Potassium Cancelled Chloride Cancelled Carbon Dioxide Cancelled Anion Gap Cancelled BUN Cancelled Creatinine Cancelled Creat Clearance w eGFR Cancelled POC Glucometer [id number] Random Glucose Cancelled Calcium Cancelled Phosphorus Cancelled Magnesium Cancelled Total Bilirubin Cancelled AST Cancelled ALT Cancelled Alkaline Phosphatase Cancelled Creatine Kinase Cancelled Creatine Kinase Index CK-MB (CK-2) Troponin I Cancelled B-Natriuretic Peptide Total Protein Cancelled Albumin Cancelled Triglycerides Cancelled Cholesterol Cancelled Total LDL Cholesterol Cancelled HDL Cholesterol Cancelled Active Medications Acetaminophen (Tylenol -) 325 mg PO Q8H PRN PRN Reason: PAIN LEVEL 6-10 Amlodipine Besylate (Norvasc -) 10 mg PO DAILY [facility] Aspirin (Ecotrin -) 81 mg PO DAILY [facility] Last Admin: 07/06/18 12:16 Dose: 81 mg Atorvastatin Calcium (Lipitor -) 40 mg PO HS [facility] Cyclobenzaprine HCl (Flexeril -) 10 mg PO HS PRN PRN Reason: BACK PAIN Docusate Sodium (Colace -) 100 mg PO TID [facility] Last Admin: 07/06/18 14:33 Dose: Not Given Ergocalciferol (Drisdol -) 50,000 unit PO Chopra@1000 [facility] Heparin Sodium (Porcine) (Heparin -) 5,000 unit SQ TID [facility] Last Admin: 07/06/18 14:33 Dose: Not Given Insulin Aspart (Novolog Vial Sliding Scale -) 1 vial SQ ACHS [facility]; Protocol Last Admin: 07/06/18 14:31 Dose: Not Given Insulin Detemir (Levemir Vial) 25 units SQ HS [facility] Lisinopril (Prinivil) 40 mg PO DAILY [facility] Last Admin: 07/06/18 12:16 Dose: 40 mg Metoprolol Succinate (Toprol Xl -) 100 mg PO DAILY [facility] Multivitamins (Total B With C -) 1 each PO DAILY [facility] Last Admin: 07/06/18 12:17 Dose: 1 each Oxycodone HCl (Roxicodone -) 5 mg PO Q8H PRN PRN Reason: PAIN LEVEL 6-10 IMAGING: -Duplex 2 legs: No evidence of deep venous thrombosis. -US R Breast: Stable right breast mass since 05/18/2013. BI-RADS Category 2: Benign. -EKG: NORMAL SINUS RHYTHM WITH SINUS ARRHYTHMIA, NORMAL ECG, VR 71, QTc 443 -ECHO: Mild concentric LVH, LVEF Is normal, RV is normal in size and function, Trace TR, Mild aortic root dilation ASSESSMENT/PLAN: 63 y/o F with PMHx HLD, HTN, CAD s/p stents 2004, DM, Depression, GERD presented with R LE and R Breast pain. #Atypical chest pain -R/O ACS -R breast pain,non pleuritic, reproducible, hx of CAD with stents -Trops 0.10 --> 0.07 -EKG Noted above -Monitor on Tele -Cardiology (Dr. Otoole) consulted #Hypertensive emergency, -208/103 on admission, Apparently patient did not take home meds -Continue Lisinopril -Started on Norvasc 5mg -Home dose Toprol increased to 100mg daily (50mg prior) -ECHO: Mild concentric LVH, LVEF Is normal, RV is normal in size and function, Trace TR, Mild aortic root dilation #R breast pain -Patient says her prior mamogram (1 month ago) and breast bx's are normal -US R Breast: Stable right breast mass since 05/18/2013. #Leg Pain -Pain has resolved -Duplex 2 legs: No evidence of deep venous thrombosis. #HLD, -Home dose Simvastatin interacts with Norvasc -Changed to Lipitor 40mg daily #CAD s/p stents 2005 -Continue home dose ASA -Continue Lisinopril, Norvasc, Toprol #DM -Home dose metformin and Tradjenta held -ISS BGM ACHS #GERD -Continue home dose Omeprazole #Constipation -Continue home dose Colace, Bisacodyl #FEN -PO Fluids -Lytes WNL -DM/Sodium controlled diet #PPx: Heparin Dispo: Obs tele Visit type - Emergency Visit Emergency Visit: Yes ED Registration Date: 07/06/18 Care time: The patient presented to the Emergency Department on the above date and was hospitalized for further evaluation of their emergent condition. - New Patient This patient is new to me today: Yes Date on this admission: 07/06/18 - Critical Care Critical Care patient: No - Discharge Referral Referred to [facility] Med P.C.: No
--- NOTE | 2018-07-06 17:37 | CON.CARD ---
Consult Consult Specialty:: Cardiology Referred by:: ER/Hospitalist Reason for Consultation:: chest pain, elevated cardiac enzymes - History of Present Illness Chief Complaint: chest kennedy, rle pain, sob History of Present Illness: 63 year old woman with pmh HTN, HLD, DMII reported CAD with stent RCA 2004 [facility] history uncertain, depression, ETT done this year that showed no ischemia but pt c/o persistent sob thus a nuclear stress test was planned but pt never followed up for it, past c/o palpitations with only PVCs seen on holter now admitted with c/o R breast pain, sob, and RLE pain after flying back from [place] Tuesday. Pt found to be severely HTN in ER Pt seen and examined in the ER in [place]. currently no complaints. no chest pain but R breast tissue pain, she has an appointment with breast center tomorrow. chronic sob with exacerbation during plane flight. no further RLE pain. - History Source History Provided By: Patient, Medical Record Limitations to Obtaining History: No Limitations - Past Medical History Cardio/Vascular: Yes: HTN, Hyperlipdemia - Alcohol/Substance Use Hx Alcohol Use: No - Smoking History Smoking history: Never smoked Have you smoked in the past 12 months: No Aproximately how many cigarettes per day: 0 If you are a former smoker, when did you quit?: 2004 - Social History Usual Living Arrangement: Alone ADL: Independent History of Recent Travel: No Home Medications - Allergies Allergies/Adverse Reactions: Allergies Allergy/AdvReac Type Severity Reaction Status Date / Time ibuprofen Allergy palpitation Verified 07/05/18 21:23 aspirin AdvReac Mild upset Verified 07/05/18 21:23 stomach - Home Medications Home Medications: Ambulatory Orders Lisinopril [Zestril] 40 mg PO DAILY 12/01/16 Linagliptin [Tradjenta] 5 mg PO DAILY 12/13/16 Metoprolol Succinate [Toprol Xl -] 50 mg PO DAILY 12/13/16 Simvastatin [Zocor -] 40 mg PO HS 12/13/16 metFORMIN HCL [Glucophage -] 500 mg PO DAILY 12/13/16 Docusate Sodium [Colace -] 100 mg PO TID #90 capsule 05/25/18 Oxycodone HCl/Acetaminophen [Percocet 5-325 mg Tablet] 1 tab PO TID PRN #70 tab MDD 3 05/25/18 Bisacodyl [Laxative] 5 mg PO BID 07/06/18 Chlorthalidone 25 mg PO DAILY 07/06/18 Cyclobenzaprine HCl [Flexeril -] 10 mg PO BID PRN MDD 10 mg 07/06/18 Omeprazole 40 mg PO DAILY 07/06/18 Family Disease History - Family Disease History Family Disease History: Diabetes: Father, Heart Disease: Father, Other: Mother ( alzheimers, ) Review of Systems - Review of Systems Constitutional: denies: No Symptoms, Chills, Diaphoresis, Fever, Lethargy, Loss of Appetite, Malaise, Night Sweats, Unintentional Wgt. Loss, Weakness, Other Eyes: denies: No Symptoms, Blind Spots, Blurred Vision, Double Vision, Eye Pain , Floaters, Photophobia, Recent Change in Vision, Other HENT: denies: No Symptoms, Difficult Swallowing, Ear Discharge, Ear Pain, Epistaxis, Gingival Bleeding, Hearing Loss, Mouth Swelling, Nasal Congestion, Ocular Prosthesis, Throat Pain, Toothache, Ringing in Ears, Other Neck: denies: No Symptoms, Decreased ROM, Lumps, Pain on Movement, Stiffness, Swollen Glands, Tenderness, Other Cardiovascular: reports: Chest Pain, Shortness of Breath. denies: No Symptoms, Edema, Palpitations, Other Respiratory: reports: SOB, SOB on Exertion. denies: No Symptoms, Cough, Exercise Intolerance, Hemoptysis, Orthopnea, PND, Snoring, Wheezing, Other Gastrointestinal: denies: No Symptoms, Abdominal Pain, Bloating, Constipation, Diarrhea, Dysphagia, Indigestion, Melena, Nausea, Rectal Bleeding, Vomiting, Vomiting Blood, Other Genitourinary: denies: No Symptoms, Burning, Discharge, Dysuria, Flank Pain, Frequency, Hematuria, Incontinence, Lesions, Menses, Pain, Testicular Mass, Testicular Pain, Testicular Swelling, Urgency, Vaginal Bleeding, Other Breasts: denies: No Symptoms Reported, See HPI, Breast Implants, Discharge from Nipple, Lumps, Pain, Skin Changes, Other Musculoskeletal: reports: Extremity Pain. denies: No Symptoms, Back Pain, Crepitus, Decreased ROM, Joint Pain, Joint Swelling, Muscle Pain, Muscle Cramps , Muscle Weakness, Other Integumentary: denies: No Symptoms, Blister, Bruising, Change in Color, Eczema, Erythema, Incision, Lesions, Lump, Pallor, Pruritis, Rash, Wound, Other Neurological: denies: No Symptoms, Change in LOC, Change in Speech, Confusion, Dizziness, Headache, Incoordination, Numbness, Parasthesia, Pre-Existing Deficit , Seizure, Syncope, Tremors, Unsteady Gait, Weakness, Other Endocrine: denies: No Symptoms, Excessive Sweating, Flushing, Increased Hunger, Increased Thirst, Intolerance to Cold, Intolerance to Heat, Unexplained Weight Gain, Unexplained Weight Loss, Other Hematology/Lymphatic: denies: No Symptoms, Easily Bruised, Excessive Bleeding, Swollen Glands, Other Psychiatric: denies: No Symptoms, Altered Sleep Pattern, Anxiety, Depression, Hallucinations, Panic, Paranoia, Suicidal, Other - Risk Factors Known Risk Factors: Yes: Hypertension Vital Signs: Vital Signs Temperature 97.8 F 07/06/18 11:32 Pulse Rate 79 07/06/18 16:29 Respiratory Rate 18 07/06/18 11:32 Blood Pressure 123/76 07/06/18 16:29 O2 Sat by Pulse Oximetry (%) 99 07/05/18 20:50 Constitutional: Yes: No Distress, Calm, Obese Eyes: Yes: Conjunctiva Clear, EOM Intact, PERRL HENT: Yes: Atraumatic, Normocephalic Neck: Yes: Supple, Trachea Midline Respiratory: Yes: Regular, Diminished. No: Rales, Rhonchi, Wheezes Gastrointestinal: Yes: Normal Bowel Sounds, Soft. No: Distention, Tenderness Cardiovascular: Yes: Regular Rate and Rhythm. No: Bradycardia, Tachycardia, Pulse Irregular, Gallop, Rub, Varicosities JVD: No Carotid Bruit: No PMI: Non-Displaced Heart Sounds: Yes: S1, S2. No: Split S2, S3, S4, Clicks, Gallop, Rub, Bruit Murmur: No: Systolic Murmur, Diastolic Murmur Musculoskeletal: Yes: WNL Extremities: Yes: WNL Edema: No Peripheral Pulses WNL: Yes Peripheral Pulses: 2+ Left Doralis Pedis, 2+ Right Dorsalis Pedis Neurological: Yes: Alert, Oriented Psychiatric: Yes: Alert, Oriented - Other Data Labs, Other Data: CBC, BMP 07/06/18 07:00 07/06/18 07:00 INR, PTT INR 0.93 (0.83-1.09) 07/06/18 07:00 Troponin, BNP 07/05/18 07/06/18 07/06/18 22:50 07:00 14:15 Troponin I 0.10 H Cancelled 0.07 H B-Natriuretic Peptide 80.4 Troponin, BNP 07/05/18 07/06/18 07/06/18 22:50 07:00 14:15 Troponin I 0.10 H Cancelled 0.07 H B-Natriuretic Peptide 80.4 ekg-nsr 71bpm, no sig st abnl Echo: Report Reviewed Imaging - Results Chest X-ray: Report Reviewed, Image Reviewed EKG: Report Reviewed, Image Reviewed Other: Report Reviewed, Image Reviewed Assessment/Plan 63 year old woman with pmh HTN, HLD, DMII reported CAD with stent RCA 2004 [facility] history uncertain, depression, ETT done this year that showed no ischemia but pt c/o persistent sob thus a nuclear stress test was planned but pt never followed up for it, past c/o palpitations with only PVCs seen on holter now admitted with c/o R breast pain, sob, and RLE pain after flying back from [place] Tuesday. Pt found to be severely HTN in ER Pt seen and examined in the ER in [facility]. currently no complaints. no chest pain but R breast tissue pain, she has an appointment with breast center tomorrow. chronic sob with exacerbation during plane flight. no further RLE pain. Chest pain/SOB-no real chest pain, Breast tissue pain -unlikely ACS, possible demand ischemia from severe uncontrolled HTN -troponin minimally elevated but did not trend up significantly -ekg no ischemia -ECHO 07/06/18 showed normal LV/RV function, mild LVH, mild aortic root dilatation. -pt was planned for a nuclear stress test as outpatient but did not follow up -plan for nuclear stress test tomorrow -reported ASA allergy unknown details, currently on ASA Doppler LE showed no DVT HTN severely uncontrolled on presentation -now adequately controlled -cont current meds and titrate as needed.
[2018-07-06] MEDS ORDERED: PANTOPRAZOLE 40 MG TABLET (FP) ONE (18:25)
[2018-07-06] MEDS ORDERED: BISACODYL 5 MG TABLET.DR (FP) ONE (18:25)
[2018-07-06] MEDS: PANTOPRAZOLE 40 MG TABLET (FP) PO SCH (18:39)
[2018-07-06] MEDS: BISACODYL 5 MG TABLET.DR (FP) PO SCH (18:40)
--- NOTE | 2018-07-06 19:14 | PN ---
Teaching Attending Note Name of Resident: Maureen Pereyra ATTENDING PHYSICIAN STATEMENT I saw and evaluated the patient. I reviewed the resident's note and discussed the case with the resident. I agree with the resident's findings and plan as documented. SUBJECTIVE: Patient is a 63 year old woman with pmhx of HTN, HLD, DMII ,with reported CAD with stent RCA 2005 , depression, presented with having a chest pain and c/o LLE pain dull pain. OBJECTIVE: Vital Signs Temperature 98.2 F 07/06/18 18:51 Pulse Rate 76 07/06/18 18:51 Respiratory Rate 18 07/06/18 11:32 Blood Pressure 179/96 H 07/06/18 18:51 O2 Sat by Pulse Oximetry (%) 99 07/05/18 20:50 GENERAL: Obese, Awake, alert, and fully oriented, in no acute respiratory distress. EYES: Pupils equal, round and reactive to light, extraocular movements intact, EARS, NOSE, THROAT: Moist mucous membranes .NECK: supple LUNGS: Breath sounds equal, clear to auscultation bilaterally. No wheezes, and no crackles. HEART: Regular rate and rhythm, normal S1 and S2 without murmur, rub or gallop. ABDOMEN: Obese, Soft, nontender, not distended, normoactive bowel sounds, MUSCULOSKELETAL: Normal range of motion at all joints. EXTREMITIES: 2+ pulses, warm, well-perfused. No calf tenderness. No peripheral edema. NEUROLOGICAL: AAOx3, Cranial nerves II-XII intact. Normal speech. CBCD WBC 6.4 K/mm3 (4.0-10.0) 07/05/18 22:50 RBC 4.43 M/mm3 (3.60-5.2) 07/05/18 22:50 Hgb 13.2 GM/dL (10.7-15.3) 07/05/18 22:50 Hct 39.6 % (32.4-45.2) 07/05/18 22:50 MCV 89.5 fl (80-96) 07/05/18 22:50 MCHC 33.4 g/dl (32.0-36.0) 07/05/18 22:50 RDW 14.0 % (11.6-15.6) 07/05/18 22:50 Plt Count 203 K/MM3 (134-434) 07/05/18 22:50 MPV 9.4 fl (7.5-11.1) 07/05/18 22:50 CMP Sodium 140 mmol/L (136-145) 07/05/18 22:50 Potassium 4.1 mmol/L (3.5-5.1) 07/05/18 22:50 Chloride 105 mmol/L (98-107) 07/05/18 22:50 Carbon Dioxide 28 mmol/L (21-32) 07/05/18 22:50 Anion Gap 8 MMOL/L (8-16) 07/05/18 22:50 BUN 16 mg/dL (7-18) 07/05/18 22:50 Creatinine 0.9 mg/dL (0.55-1.3) 07/05/18 22:50 Creat Clearance w eGFR > 60 (>60) 07/05/18 22:50 Random Glucose 153 mg/dL (74-106) H 07/05/18 22:50 Calcium 8.5 mg/dL (8.5-10.1) 07/05/18 22:50 Total Bilirubin 0.4 mg/dL (0.2-1) 07/05/18 22:50 AST 38 U/L (15-37) H 07/05/18 22:50 ALT 99 U/L (13-61) H 07/05/18 22:50 Alkaline Phosphatase 114 U/L (45-117) 07/05/18 22:50 Total Protein 7.4 g/dl (6.4-8.2) 07/05/18 22:50 Albumin 3.8 g/dl (3.4-5.0) 07/05/18 22:50 CARDIAC ENZYMES Creatine Kinase 224 IU/L (26-192) H 07/06/18 14:15 Troponin I 0.07 ng/ml (0.00-0.05) H 07/06/18 14:15 Current Medications Generic Name Dose Route Start Last Admin Trade Name Freq PRN Reason Stop Dose Admin Acetaminophen 325 mg 07/06/18 03:19 Tylenol - PO Q8H PRN PAIN LEVEL 6-10 Amlodipine Besylate 10 mg 07/07/18 10:00 Norvasc - PO DAILY [facility] Aspirin 81 mg 07/06/18 10:00 07/06/18 12:16 Ecotrin - PO 81 mg DAILY [facility] Administration Atorvastatin Calcium 40 mg 10/25/18 22:00 Lipitor - PO HS [facility] Bisacodyl 5 mg 07/06/18 16:45 07/06/18 18:40 Dulcolax - PO Not Given DAILY [facility] Chlorthalidone 25 mg 07/07/18 10:00 Hygroton - PO DAILY [facility] Cyclobenzaprine HCl 10 mg 07/06/18 02:54 Flexeril - PO HS PRN BACK PAIN Docusate Sodium 100 mg 07/06/18 06:00 07/06/18 14:33 Colace - PO Not Given TID [facility] Ergocalciferol 50,000 unit 07/09/18 10:00 Drisdol - PO Chopra@1000 [facility] Heparin Sodium (Porcine) 5,000 unit 07/06/18 06:00 07/06/18 14:33 Heparin - SQ Not Given TID [facility] Insulin Aspart 1 vial 07/06/18 07:00 07/06/18 18:38 Novolog Vial Sliding Scale - SQ 2 units ACHS [facility] Administration Protocol Insulin Detemir 25 units 07/06/18 22:00 Levemir Vial SQ HS [facility] Lisinopril 40 mg 07/06/18 10:00 07/06/18 12:16 Prinivil PO 40 mg DAILY [facility] Administration Metoprolol Succinate 100 mg 07/07/18 10:00 Toprol Xl - PO DAILY [facility] Multivitamins 1 each 07/06/18 10:00 07/06/18 12:17 Total B With C - PO 1 each DAILY [facility] Administration Oxycodone HCl 5 mg 07/06/18 03:18 Roxicodone - PO Q8H PRN PAIN LEVEL 6-10 Pantoprazole Sodium 40 mg 07/06/18 16:30 07/06/18 18:39 Protonix - PO 40 mg DAILY [facility] Administration Home Medications Medication Instructions Recorded Lisinopril [Zestril] 40 mg PO DAILY 12/01/16 Linagliptin [Tradjenta] 5 mg PO DAILY 12/13/16 Metoprolol Succinate [Toprol Xl -] 50 mg PO DAILY 12/13/16 Simvastatin [Zocor -] 40 mg PO HS 12/13/16 metFORMIN HCL [Glucophage -] 500 mg PO DAILY 12/13/16 Docusate Sodium [Colace -] 100 mg PO TID #90 capsule 05/25/18 Oxycodone HCl/Acetaminophen 1 tab PO TID PRN #70 tab MDD 3 05/25/18 [Percocet 5-325 mg Tablet] Bisacodyl [Laxative] 5 mg PO BID 07/06/18 Chlorthalidone 25 mg PO DAILY 07/06/18 Cyclobenzaprine HCl [Flexeril -] 10 mg PO BID PRN MDD 10 mg 07/06/18 Omeprazole 40 mg PO DAILY 07/06/18 ASSESSMENT AND PLAN: Pt is a 63 yo F with PMHx HLD, HTN, CAD s/p stents 2004, DM, Depression, GERD, presenting with of R LLE pain. Pt reports a constant dull pain radiating from R thigh to R groin area. #Atypical chest pain R/O ACS, cardio consult #Right leg pain , DVT is rulled out Duplex US reported no DVTs bilaterally #HTNsive emergency; added norvasc 10mg and toprol Xl increased the dose to 100mg # HLD continue will switch simvastatin to lipitor # CAD s/p stents 2004, cont ASA/Toprol/Lisinopril # DM ISS ACHS/BGM ACHS/continue levemir 25UHS/Hold oral hypoglycemic agents #Depression, No home meds noted #GERD :No home meds noted, monitor PPx: heparin sq
[2018-07-06] MEDS ORDERED: INSULIN (LEVEMIR) 100 UNITS/ML UNITS SQ SCH (22:00)
[2018-07-06] MEDS ORDERED: ATORVASTATIN CA 20 MG TABLET (FP) PO SCH ×2 (22:00)
[2018-07-06] MEDS ORDERED: MELATONIN 5 MG TABLETS PO ONE (22:14)
[2018-07-07] MEDS: DOCUSATE SODIUM 100 MG CAPSULE (FP) PO SCH ×2 (05:56→14:02)
[2018-07-07] MEDS: HEPARIN NA (PORCINE) 5,000 UNITS/ML 1ML VIAL SQ SCH ×2 (05:56→14:02)
[2018-07-07] MEDS: INSULIN SLIDING SCALE (NOVOLOG) 1 VIAL SQ SCH ×2 (06:26→12:18)
--- NOTE | 2018-07-07 08:58 | PN ---
Teaching Attending Note Name of Resident: Maureen Pereyra ATTENDING PHYSICIAN STATEMENT I saw and evaluated the patient. I reviewed the resident's note and discussed the case with the resident. I agree with the resident's findings and plan as documented. SUBJECTIVE: Patient is feeling better. No further chest pain. No fever or chills. OBJECTIVE: Vital Signs Temperature 97.8 F 07/07/18 05:55 Pulse Rate 74 07/07/18 05:55 Respiratory Rate 20 07/07/18 05:55 Blood Pressure 122/67 07/07/18 05:55 O2 Sat by Pulse Oximetry (%) 98 07/07/18 02:00 GENERAL: Awake, alert, and fully oriented, in no acute respiratory distress. EYES: Pupils equal, round and reactive to light, extraocular movements intact, EARS, NOSE, THROAT: Moist mucous membranes .NECK: supple LUNGS: Breath sounds equal, clear to auscultation bilaterally. No wheezes, and no crackles. HEART: Regular rate and rhythm, normal S1 and S2 without murmur, rub or gallop. ABDOMEN: Obese, Soft, nontender, not distended, normoactive bowel sounds, MUSCULOSKELETAL: Normal range of motion at all joints. EXTREMITIES: 2+ pulses, warm, well-perfused. No calf tenderness. No peripheral edema. NEUROLOGICAL: AAOx3, Cranial nerves II-XII intact. Normal speech. CBCD WBC 6.4 K/mm3 (4.0-10.0) 07/05/18 22:50 RBC 4.43 M/mm3 (3.60-5.2) 07/05/18 22:50 Hgb 13.2 GM/dL (10.7-15.3) 07/05/18 22:50 Hct 39.6 % (32.4-45.2) 07/05/18 22:50 MCV 89.5 fl (80-96) 07/05/18 22:50 MCHC 33.4 g/dl (32.0-36.0) 07/05/18 22:50 RDW 14.0 % (11.6-15.6) 07/05/18 22:50 Plt Count 203 K/MM3 (134-434) 07/05/18 22:50 MPV 9.4 fl (7.5-11.1) 07/05/18 22:50 CMP Sodium 140 mmol/L (136-145) 07/05/18 22:50 Potassium 4.1 mmol/L (3.5-5.1) 07/05/18 22:50 Chloride 105 mmol/L (98-107) 07/05/18 22:50 Carbon Dioxide 28 mmol/L (21-32) 07/05/18 22:50 Anion Gap 8 MMOL/L (8-16) 07/05/18 22:50 BUN 16 mg/dL (7-18) 07/05/18 22:50 Creatinine 0.9 mg/dL (0.55-1.3) 07/05/18 22:50 Creat Clearance w eGFR > 60 (>60) 07/05/18 22:50 Random Glucose 153 mg/dL (74-106) H 07/05/18 22:50 Calcium 8.5 mg/dL (8.5-10.1) 07/05/18 22:50 Total Bilirubin 0.4 mg/dL (0.2-1) 07/05/18 22:50 AST 38 U/L (15-37) H 07/05/18 22:50 ALT 99 U/L (13-61) H 07/05/18 22:50 Alkaline Phosphatase 114 U/L (45-117) 07/05/18 22:50 Total Protein 7.4 g/dl (6.4-8.2) 07/05/18 22:50 Albumin 3.8 g/dl (3.4-5.0) 07/05/18 22:50 CARDIAC ENZYMES Creatine Kinase 224 IU/L (26-192) H 07/06/18 14:15 Troponin I 0.07 ng/ml (0.00-0.05) H 07/06/18 14:15 Current Medications Generic Name Dose Route Start Last Admin Trade Name Freq PRN Reason Stop Dose Admin Acetaminophen 325 mg 07/06/18 03:19 Tylenol - PO Q8H PRN PAIN LEVEL 6-10 Amlodipine Besylate 10 mg 07/07/18 10:00 Norvasc - PO DAILY [facility] Aspirin 81 mg 07/06/18 10:00 07/06/18 12:16 Ecotrin - PO 81 mg DAILY [facility] Administration Atorvastatin Calcium 40 mg 07/06/18 22:00 07/06/18 22:46 Lipitor - PO 40 mg HS [facility] Administration Bisacodyl 5 mg 07/06/18 16:45 07/06/18 18:40 Dulcolax - PO Not Given DAILY [facility] Chlorthalidone 25 mg 07/07/18 10:00 Hygroton - PO DAILY [facility] Cyclobenzaprine HCl 10 mg 07/06/18 02:54 Flexeril - PO HS PRN BACK PAIN Docusate Sodium 100 mg 07/06/18 06:00 07/07/18 05:56 Colace - PO Not Given TID [facility] Ergocalciferol 50,000 unit 07/09/18 10:00 Drisdol - PO Chopra@1000 [facility] Heparin Sodium (Porcine) 5,000 unit 07/06/18 06:00 07/07/18 05:56 Heparin - SQ Not Given TID [facility] Insulin Aspart 1 vial 07/06/18 07:00 07/07/18 06:26 Novolog Vial Sliding Scale - SQ Not Given ACHS [facility] Protocol Insulin Detemir 25 units 07/06/18 22:00 07/06/18 22:10 Levemir Vial SQ Not Given HS [facility] Lisinopril 40 mg 07/06/18 10:00 07/06/18 12:16 Prinivil PO 40 mg DAILY [facility] Administration Metoprolol Succinate 100 mg 07/07/18 10:00 Toprol Xl - PO DAILY [facility] Multivitamins 1 each 07/06/18 10:00 07/06/18 12:17 Total B With C - PO 1 each DAILY [facility] Administration Oxycodone HCl 5 mg 07/06/18 03:18 Roxicodone - PO Q8H PRN PAIN LEVEL 6-10 Pantoprazole Sodium 40 mg 07/06/18 16:30 07/06/18 18:39 Protonix - PO 40 mg DAILY [facility] Administration Home Medications Medication Instructions Recorded Lisinopril [Zestril] 40 mg PO DAILY 12/01/16 Linagliptin [Tradjenta] 5 mg PO DAILY 12/13/16 Metoprolol Succinate [Toprol Xl -] 50 mg PO DAILY 12/13/16 Simvastatin [Zocor -] 40 mg PO HS 12/13/16 metFORMIN HCL [Glucophage -] 500 mg PO DAILY 12/13/16 Docusate Sodium [Colace -] 100 mg PO TID #90 capsule 05/25/18 Oxycodone HCl/Acetaminophen 1 tab PO TID PRN #70 tab MDD 3 05/25/18 [Percocet 5-325 mg Tablet] Bisacodyl [Laxative] 5 mg PO BID 07/06/18 Chlorthalidone 25 mg PO DAILY 07/06/18 Cyclobenzaprine HCl [Flexeril -] 10 mg PO BID PRN MDD 10 mg 07/06/18 Omeprazole 40 mg PO DAILY 07/06/18 ASSESSMENT AND PLAN: Pt is a 63 yo F with PMHx HLD, HTN, CAD s/p stents 2004, DM, Depression, GERD, presenting with of R LLE pain. Pt reports a constant dull pain radiating from R thigh to R groin area. #Atypical chest pain s/p stress test.: exercise result: No diagnostic ST changes during exercise, mIld apical ischemia. No evidence of Transient ischemic dilataion. Patient will follow with , has an appointment for this Tuesday at 1pm. #Right leg pain , DVT is ruled out Duplex US reported no DVTs #HTNsive emergency Blood pressure improved by adding norvasc 10mg and toprol Xl increased the dose to 100mg # HLD continue will switch simvastatin to lipitor # CAD s/p stents 2004, cont ASA/Toprol/Lisinopril # DM ISS ACHS/BGM ACHS/continue levemir 25[facility]/Hold oral hypoglycemic agents #Depression, No home meds noted #GERD :No home meds noted, monitor PPx: heparin sq will discharge the patient home, Discussed with and
[2018-07-07] MEDS ORDERED: CHLORTHALIDONE 25 MG TABLET PO SCH (10:00)
[2018-07-07] MEDS: ASPIRIN COATED 81 MG TABLET.EC PO SCH ×2 (10:18→12:23)
[2018-07-07] MEDS: BISACODYL 5 MG TABLET.DR (FP) PO SCH ×2 (10:18→12:24)
[2018-07-07] MEDS: amLODIPine BESYLATE 10 MG TABLET (FP) PO SCH ×2 (10:18→12:24)
[2018-07-07] MEDS: LISINOPRIL 20 MG TABLET (FP) PO SCH ×2 (10:18→12:23)
[2018-07-07] MEDS: PANTOPRAZOLE 40 MG TABLET (FP) PO SCH (10:19)
[2018-07-07] MEDS: VITAMIN B COMPLEX W/C COMBO TABLET (FP) PO SCH ×2 (10:20→12:23)
[2018-07-07 14:27] VITALS: BP 137/78; PULSE 77; TEMP 98.2
--- NOTE | 2018-07-07 15:35 | DS ---
Physical Exam: SUBJECTIVE: Patient seen and examined this morning. No longer having chest pain. Otherwise No new complaints. No acute overnight events as per nursing. Denies fevers, chills, chest pain, SOB, nausea, vomiting. OBJECTIVE: Vital Signs Period Temp Pulse Resp BP Sys/Bhatia Pulse Ox Last 24 Hr 97.5 F-98.2 F 61-79 20-20 122-179/67-96 96-98 PHYSICAL EXAM GENERAL: A&Ox3, NAD HEAD: NCAT EYES: PERRL, EOMI ENT: Oropharynx clear without exudates, moist mucous membranes. NECK: No JVD LUNGS: Breath sounds equal, clear to auscultation bilaterally, no wheezes HEART: Regular rate and rhythm, S1, S2 without murmur ABDOMEN: Obese, Soft, nontender, nondistended, + bowel sounds, no guarding EXTREMITIES: 2+ pulses, no edema. NEUROLOGICAL: Cranial nerves II through XII grossly intact. Normal speech, Able to ambulate without difficulty, C5-T1 and L4-S1 gross sensation intact. 5/5 muscle strength globally LABS Laboratory Last Values WBC 6.4 K/mm3 (4.0-10.0) 07/05/18 22:50 Corrected WBC (auto) Cancelled 07/06/18 07:00 RBC 4.43 M/mm3 (3.60-5.2) 07/05/18 22:50 Hgb 13.2 GM/dL (10.7-15.3) 07/05/18 22:50 Hct 39.6 % (32.4-45.2) 07/05/18 22:50 MCV 89.5 fl (80-96) 07/05/18 22:50 MCH 29.8 pg (25.7-33.7) 07/05/18 22:50 MCHC 33.4 g/dl (32.0-36.0) 07/05/18 22:50 RDW 14.0 % (11.6-15.6) 07/05/18 22:50 Plt Count 203 K/MM3 (134-434) 07/05/18 22:50 MPV 9.4 fl (7.5-11.1) 07/05/18 22:50 Absolute Neuts (auto) 3.7 K/mm3 (1.5-8.0) 07/05/18 22:50 Neutrophils % 57.7 % (42.8-82.8) 07/05/18 22:50 Lymphocytes % 29.5 % (8-40) 07/05/18 22:50 Monocytes % 8.3 % (3.8-10.2) 07/05/18 22:50 Eosinophils % 3.5 % (0-4.5) 07/05/18 22:50 Basophils % 1.0 % (0-2.0) 07/05/18 22:50 Nucleated RBC % 0 % (0-0) 07/05/18 22:50 Platelet Estimate Cancelled 07/06/18 07:00 Platelet Comment Cancelled 07/06/18 07:00 PT with INR 11.00 SEC (9.7-13.0) 07/06/18 07:00 INR 0.93 (0.83-1.09) 07/06/18 07:00 PTT (Actin FS) 19.8 SECONDS (25.2-36.5) L 07/06/18 07:00 D-Dimer Cancelled 07/05/18 22:50 Sodium 140 mmol/L (136-145) 07/05/18 22:50 Potassium 4.1 mmol/L (3.5-5.1) 07/05/18 22:50 Chloride 105 mmol/L (98-107) 07/05/18 22:50 Carbon Dioxide 28 mmol/L (21-32) 07/05/18 22:50 Anion Gap 8 MMOL/L (8-16) 07/05/18 22:50 BUN 16 mg/dL (7-18) 07/05/18 22:50 Creatinine 0.9 mg/dL (0.55-1.3) 07/05/18 22:50 Creat Clearance w eGFR > 60 (>60) 07/05/18 22:50 POC Glucometer 173 UNITS (80-120) 07/07/18 05:45 Random Glucose 153 mg/dL (74-106) H 07/05/18 22:50 Calcium 8.5 mg/dL (8.5-10.1) 07/05/18 22:50 Phosphorus Cancelled 07/06/18 07:00 Magnesium 2.2 mg/dL (1.8-2.4) 07/05/18 22:50 Total Bilirubin 0.4 mg/dL (0.2-1) 07/05/18 22:50 AST 38 U/L (15-37) H 07/05/18 22:50 ALT 99 U/L (13-61) H 07/05/18 22:50 Alkaline Phosphatase 114 U/L (45-117) 07/05/18 22:50 Creatine Kinase 224 IU/L (26-192) H 07/06/18 14:15 Creatine Kinase Index 0.8 % (0.0-5.0) 07/06/18 14:15 CK-MB (CK-2) 1.8 ng/mL (0.5-3.6) 07/06/18 14:15 Troponin I 0.07 ng/ml (0.00-0.05) H 07/06/18 14:15 B-Natriuretic Peptide 80.4 pg/ml (5-125) 07/05/18 22:50 Total Protein 7.4 g/dl (6.4-8.2) 07/05/18 22:50 Albumin 3.8 g/dl (3.4-5.0) 07/05/18 22:50 Triglycerides 195 mg/dL (0-150) H 07/06/18 14:15 Cholesterol 210 mg/dL (50-200) H 07/06/18 14:15 Total LDL Cholesterol 156 mg/dL (5-100) H 07/06/18 14:15 HDL Cholesterol 41 mg/dL (40-60) 07/06/18 14:15 IMAGING: -Duplex 2 legs: No evidence of deep venous thrombosis. -US R Breast: Stable right breast mass since 05/18/2013. BI-RADS Category 2: Benign. -EKG: NORMAL SINUS RHYTHM WITH SINUS ARRHYTHMIA, NORMAL ECG, VR 71, QTc 443 -ECHO: Mild concentric LVH, LVEF Is normal, RV is normal in size and function, Trace TR, Mild aortic root dilation HOSPITAL COURSE: Date of Admission:07/06/18 Date of Discharge: 07/07/18 63 y/o F with PMHx HLD, HTN, CAD s/p stents 2004, DM, Depression, GERD presented to [facility] with R LE and R Breast pain, and was admitted to R/O ACS. Trops trended down from 0.10 to 0.07. EKG and Echo were done (noted above). Cardiology was consulted. An exercise Stress test was done that revealed mild apical ishcemia, No diagnostic ST changes during exercise, No evidence of transient ischemic dilatation, and LVEF 56%. On admission, her BP was 208/103. Norvasc was added to her home regimen and her home dose Toprol was increased; Her BP improved. Patient was monitored on Tele during her hospital stay. Her home dose Zocor was stopped and patient was started on Lipitor. Patient was given a follow up appointment with Dr. Zamudio and was discharged home. Minutes to complete discharge: 45 Discharge Summary Reason For Visit: CHEST PAIN AT REST Current Active Problems Chest pain at rest (Acute) Right thigh pain (Acute) Hypertension (Chronic) Obesity (BMI 30-39.9) (Chronic) Condition: Stable - Instructions Diet, Activity, Other Instructions: You were observed in the hospital for chest pain. You were seen by a cutter operator (Dr. Zamudio). Please see Dr. Zamudio at 1pm on Wednesday 07/11 here at [facility]. Your Echocardiogram (ultrasound of the heart) and Stress tests were negative for concerns. Your blood pressure was very high upon arrival to the ED. Make sure you take your blood pressure medications as prescribed. Please follow up with your primary care physician in one week. Follow ups: Cardiology: Dr. Zamudio on 07/11/2018 at 1pm Medication Changes -Metoprolol 100mg Daily (Stop taking your home dose 50mg daily) -Amlodipine 10mg daily -Lipitor 40mg at night (Stop taking your home dose Zocor), Do not take Zocor with Amlodipine , increases the risk of having muscle pain and break down of your muscles. Continue all your other medications as prescribed Please call 911 or return to the ER if you have any signs or symptoms of chest pain, shortness of breath, uncontrollable fever, chills, nausea, vomiting, numbness, tingling, or weakness in any part of your body, changes in vision, or slurred speech. Please return to the ER if symptoms persist, worsen, or new symptoms arise. Referrals: Malou Caruso MD [Primary Care Provider] - Yaw Zamudio MD [Staff Physician] - 07/11/18 1:00 pm Disposition: HOME - Home Medications Comprehensive Discharge Medication List: Ambulatory Orders Lisinopril [Zestril] 40 mg PO DAILY 12/01/16 Linagliptin [Tradjenta] 5 mg PO DAILY 12/13/16 metFORMIN HCL [Glucophage -] 500 mg PO DAILY 12/13/16 Docusate Sodium [Colace -] 100 mg PO TID #90 capsule 05/25/18 Oxycodone HCl/Acetaminophen [Percocet 5-325 mg Tablet] 1 tab PO TID PRN #70 tab MDD 3 05/25/18 Bisacodyl [Laxative] 5 mg PO BID 07/06/18 Chlorthalidone 25 mg PO DAILY 07/06/18 Cyclobenzaprine HCl [Flexeril -] 10 mg PO BID PRN MDD 10 mg 07/06/18 Omeprazole 40 mg PO DAILY 07/06/18 Amlodipine Besylate [Norvasc -] 10 mg PO DAILY #30 tablet 07/07/18 Aspirin Coated [Ecotrin -] 81 mg PO DAILY #30 tablet.ec 07/07/18 Atorvastatin Ca [Lipitor] 40 mg PO HS #30 tablet 07/07/18 Metoprolol Succinate [Toprol XL -] 100 mg PO DAILY #60 tab.sr.24h 07/07/18 This patient is new to me today: No Emergency Visit: Yes ED Registration Date: 07/06/18 Care time: The patient presented to the Emergency Department on the above date and was hospitalized for further evaluation of their emergent condition. Critical Care patient: No - Discharge Referral Referred to [facility] Med [facility].: No
[2018-07-09] MEDS ORDERED: ERGOCALCIFEROL (VITAMIN D2) 50,000 UNIT CAPSULE (FP) PO SCH (10:00)
== END 2018-07-07 17:29 | disposition home or self-care (01) ==
LOC: JER 20:44 → JERBED 07-06 01:30 → J4W 07-06 21:03
PROVIDERS: ADMIT Internal Medicine; ATTEND Internal Medicine
DX: R07.89 Other chest pain (principal); M79.651 Pain in right thigh; I16.1 Hypertensive emergency; I10 Essential (primary) hypertension; E11.9 Type 2 diabetes mellitus without complications; D64.9 Anemia, unspecified; I25.10 Atherosclerotic heart disease of native coronary artery without angina pectoris; F32.9 Major depressive disorder, single episode, unspecified; K76.0 Fatty (change of) liver, not elsewhere classified; E78.5 Hyperlipidemia, unspecified; R77.8 Other specified abnormalities of plasma proteins; G47.33 Obstructive sleep apnea (adult) (pediatric); N64.4 Mastodynia; K21.9 Gastro-esophageal reflux disease without esophagitis; E66.9 Obesity, unspecified; Z95.5 Presence of coronary angioplasty implant and graft; Z88.6 Allergy status to analgesic agent
CPT/HCPCS: 36415; 71046-TC-FY; 76641-TC-RT; 78452-TC; 80053; 80061; 82550; 82553; 82962; 83721; 83735; 83880; 84484; 85025; 85379; 85610; 85730; 93005; 93010; 93017; 93306-TC; 93970-TC; 99285-25; A9502; G0378

== ENCOUNTER 2019-06-28 11:42 | Emergency (ER) | payer OTHER ==
[2019-06-28 11:56] VITALS: BP 145/77; PULSE 66; TEMP 98.5; BMI 40.2
--- NOTE | 2019-06-28 11:58 | PDOC ---
Rapid Medical Evaluation Chief Complaint: Chronic pain Time Seen by Provider: 06/28/19 11:55 Medical Evaluation: Allergies Allergy/AdvReac Type Severity Reaction Status Date / Time ibuprofen Allergy palpitation Verified 07/05/18 21:23 aspirin AdvReac Mild upset Verified 07/05/18 21:23 stomach 06/28/19 11:55 I have performed a brief in-person evaluation of this patient. The patient presents with a chief complaint of: chronic low back pain, taking "everything" and not helping Pertinent physical exam findings: well appearing, ambulatory I have ordered the following: nothing The patient will proceed to the ED for further evaluation. Discharge Disposition - Diagnosis Chronic pain - Discharge Dispostion Condition at time of disposition: Stable - Referrals - Patient Instructions - Post Discharge Activity
[2019-06-28] MEDS ORDERED: diazePAM 5 MG TABLET PO ONE (12:36)
[2019-06-28] MEDS ORDERED: diazePAM 5 MG TABLET ONE (12:40)
--- NOTE | 2019-06-28 12:43 | PDOC ---
History of Present Illness - General Chief Complaint: Chronic pain Stated Complaint: BACK PAIN Time Seen by Provider: 06/28/19 11:55 History Source: Patient Exam Limitations: No Limitations - History of Present Illness Initial Comments: 06/28/19 12:38 CHIEF COMPLAINT: Lower back pain HISTORY OF PRESENT ILLNESS: This is a 64-year-old woman with past medical history of hypertension, NE with RAD stent 2005, diabetes who presents to the emergency department for evaluation of lower back pain. Patient reports the pain is been present for 1 week and is atraumatic. She denies neurosensory deficits, incontinence of bladder or bowel, saddle anesthesia, urinary retention , history of IV drug use or cancer. Patient does endorse urinary frequency but is unsure if this is her usual pattern. She denies dysuria or hematuria. REVIEW OF SYSTEMS: GENERAL: Afebrile, denies any weakness RESPIRATORY: No cough, wheezing, or hemoptysis. CARDIAC: No chest pain or shortness of breath MUSCULOSKELETAL: Pain to generalized lower back. No point tenderness. SKIN : No erythema, no bruising, no deformity. GI/: see HPI RECTAL: Denies any difficulty this A.m. NEUROLOGICAL: Denies any numbness or tingling. No neurosensory deficits. PHYSICAL EXAM: GENERAL: The patient is awake, alert, and fully oriented, in no acute distress. RESPIRATORY: Lungs clear bilaterally, no rhonchi wheezes or crackles CARDIAC: S1-S2 audible, no murmur rub or gallop MUSCULOSKELETAL: Pain to generalized lower back, nonradiating, no tingling or sensory deficit. Less than 2 second cap refill, +2 pedal pulses. No spinal point tenderness. Normal reflexive and no deficits to sensation or strength. GI/: Abdomen soft, nontender, nondistended. No rebound tenderness. No masses palpable. RECTAL: Deferred patient with no neurological findings SKIN: Warm, Dry, normal turgor, no erythema, no edema no bruising. Past History - Past Medical History Allergies/Adverse Reactions: Allergies Allergy/AdvReac Type Severity Reaction Status Date / Time ibuprofen Allergy palpitation Verified 07/05/18 21:23 aspirin AdvReac Mild upset Verified 07/05/18 21:23 stomach Home Medications: Ambulatory Orders Lisinopril [Zestril] 40 mg PO DAILY 12/01/16 Linagliptin [Tradjenta] 5 mg PO DAILY 12/13/16 metFORMIN HCL [Glucophage -] 500 mg PO DAILY 12/13/16 Docusate Sodium [Colace -] 100 mg PO TID #90 capsule 05/25/18 Bisacodyl [Laxative] 5 mg PO BID 07/06/18 Chlorthalidone 25 mg PO DAILY 07/06/18 Cyclobenzaprine HCl [Flexeril -] 10 mg PO BID PRN MDD 10 mg 07/06/18 Omeprazole 40 mg PO DAILY 07/06/18 Amlodipine Besylate [Norvasc -] 10 mg PO DAILY #30 tablet 07/07/18 Aspirin Coated [Ecotrin -] 81 mg PO DAILY #30 tablet.ec 07/07/18 Atorvastatin Ca [Lipitor] 40 mg PO HS #30 tablet 07/07/18 Metoprolol Succinate [Toprol XL -] 100 mg PO DAILY #60 tab.sr.24h 07/07/18 Oxycodone HCl/Acetaminophen [Percocet 5-325 mg Tablet] 1 tab PO TID PRN #70 tab MDD 3 07/10/18 Pramipexole Dihydrochloride [Mirapex -] 0.125 mg PO BID #60 tablet 07/10/18 Methylprednisolone [Medrol Dose Hesham] 4 mg PO ASDIR #21 tablet 06/28/19 Anemia: Yes Asthma: No Cancer: No Cardiac Disorders: Yes (cad) CVA: No COPD: No CHF: No Dementia: No Diabetes: Yes GI Disorders: Yes (GERD,NON ULCER DYSPEPSIA) Disorders: No HTN: Yes Hypercholesterolemia: Yes Liver Disease: Yes (fatty liver) Seizures: No Thyroid Disease: No - Surgical History Abdominal Surgery: No Appendectomy: No Cardiac Surgery: Yes (CARDIAC STENT 1X 2004) Cholecystectomy: Yes (2007) Lung Surgery: No Neurologic Surgery: No Orthopedic Surgery: No - Immunization History Immunization Up to Date: No - Psycho Social/Smoking Cessation Hx Smoking Status: No Smoking History: Never smoked Have you smoked in the past 12 months: No Number of Cigarettes Smoked Daily: 0 If you are a former smoker, when did you quit?: 2004 Information on smoking cessation initiated: No Hx Alcohol Use: No Drug/Substance Use Hx: No Substance Use Type: None Hx Substance Use Treatment: No Trauma Specific PMHX - Complaint Specific PMHX Arthritis: Yes (shoulders) Back Injury: No Neck Injury: No Hx Sacro Iliac Joint Dysfunction: No *Physical Exam - Vital Signs Last Vital Signs Temp Pulse Resp BP Pulse Ox 98.5 F 66 16 145/77 97 06/28/19 11:54 06/28/19 11:54 06/28/19 11:54 06/28/19 11:54 06/28/19 11:54 Medical Decision Making - Medical Decision Making 06/28/19 12:42 A/P: 64-year-old woman with atraumatic lower back pain for 1 week. No palpable muscle spasms No bony deformity Pain is consistent with lumbago with left-sided sciatica. Patient was taken Tylenol earlier today and given allergy to ibuprofen and aspirin I will treat with Valium 5 mg orally now Urinalysis, urine culture Likely discharge home with Medrol Dosepak and PMD follow-up. 06/28/19 13:32 Urinalysis is not suggestive of infection Discharge home with Medrol Dosepak as patient currently reports improvement in symptoms Discharge - Discharge Information Problems reviewed: Yes Clinical Impression/Diagnosis: Chronic pain Qualifiers: Chronic pain type: chronic pain syndrome Qualified Code(s): G89.4 - Chronic pain syndrome Condition: Stable Disposition: HOME - Admission No - Additional Discharge Information Prescriptions: Methylprednisolone [Medrol Dose Hesham] 4 mg PO ASDIR #21 tablet - Follow up/Referral Referrals: Malou Caruso MD [Primary Care Provider] - - Patient Discharge Instructions Additional Instructions: Take Tylenol as needed for pain. Follow manufacturers instructions for appropriate dosage. Try not to walk or bear weight as much as possible for the next 3 days. Warm moist heat applied to your back may help alleviate pain. Medrol Dosepak as prescribed. Return to emergency department for discoloration of the foot, numbness or tingling to the foot, worsening pain, or any other concerns. Thank you very much for choosing us to provide your emergent healthcare needs. - Post Discharge Activity
[2019-06-28 13:22] LABS: URINE APPEARANCE CLEAR; URINE BILIRUBIN NEGATIVE (NEGATIVE); URINE COLOR YELLOW; URINE GLUCOSE (UA) NEGATIVE (NEGATIVE); URINE KETONE NEGATIVE (NEGATIVE); URINE LEUK ESTERASE NEGATIVE (NEGATIVE); URINE NITRITE NEGATIVE (NEGATIVE); URINE PROTEIN NEGATIVE (NEGATIVE)
== END 2019-06-28 13:42 | disposition home or self-care (01) ==
LOC: JERFT 11:42
DX: G89.4 Chronic pain syndrome (principal); I10 Essential (primary) hypertension; I25.2 Old myocardial infarction; Z95.5 Presence of coronary angioplasty implant and graft; E11.9 Type 2 diabetes mellitus without complications; Z88.8 Allergy status to other drugs, medicaments and biological substances; K92.9 Disease of digestive system, unspecified; I25.10 Atherosclerotic heart disease of native coronary artery without angina pectoris; K76.0 Fatty (change of) liver, not elsewhere classified; D64.9 Anemia, unspecified; E78.00 Pure hypercholesterolemia, unspecified
CPT/HCPCS: 81003; 87077; 87086; 99282-25

== ENCOUNTER 2020-11-28 05:20 | Day surgery (SDC) | payer OTHER ==
[2020-11-27 08:56] VITALS: BMI 40.2
[2020-11-28] MEDS ORDERED: LIDOCAINE 1% P/F 10 MG/ML VIAL SNB ONE (11:04)
[2020-11-28] MEDS ORDERED: IOHEXOL 180 MG/1 ML ML IJ ONE (11:04)
[2020-11-28 13:08] VITALS: BP 130/60; PULSE 70; TEMP 98
== END 2020-11-28 12:40 | disposition home or self-care (01) ==
LOC: JASU-SURG 05:20
PROVIDERS: ATTEND Pain Medicine Pain Medicine
PROC: 3E0R33Z Introduction of Anti-inflammatory into Spinal Canal, Percutaneous Approach (ICD-10-PCS; 2020-11-28)
PROC: 3E0R3BZ Introduction of Anesthetic Agent into Spinal Canal, Percutaneous Approach (ICD-10-PCS; principal; 2020-11-28 10:00)
DX: M54.16 Radiculopathy, lumbar region (principal); I25.10 Atherosclerotic heart disease of native coronary artery without angina pectoris; I10 Essential (primary) hypertension; Z95.5 Presence of coronary angioplasty implant and graft; E11.9 Type 2 diabetes mellitus without complications; Z79.84 Long term (current) use of oral hypoglycemic drugs
CPT/HCPCS: 76000-TC-FY

== ENCOUNTER 2021-01-02 03:58 | Day surgery (SDC) | payer OTHER ==
[2021-01-01 12:06] VITALS: BMI 40.2
[2021-01-02] MEDS ORDERED: LIDOCAINE HCL/PF 1% SDV 5ML VIAL ONE (07:14)
[2021-01-02] MEDS ORDERED: BUPIVACAINE HCL/PF 0.75% 10 ML VIAL ONE (07:15)
[2021-01-02] MEDS ORDERED: LIDOCAINE 1% P/F 10 MG/ML VIAL INF ONE (08:32)
[2021-01-02] MEDS ORDERED: IOHEXOL 180 MG/1 ML ML IJ ONE ×2 (08:36)
[2021-01-02] MEDS ORDERED: BUPIVACAINE HCL/PF 0.75% 10 ML VIAL NR ONE (08:37)
[2021-01-02] MEDS ORDERED: ACETAMINOPHEN 325 MG TABLET (FP) ONE (08:56)
[2021-01-02 09:08] VITALS: TEMP 97.5
[2021-01-02 10:02] VITALS: BP 130/70; PULSE 70
== END 2021-01-02 11:50 | disposition home or self-care (01) ==
LOC: JASU-SURG 03:58
PROVIDERS: ATTEND Pain Medicine Pain Medicine
PROC: BR15YZZ Fluoroscopy of Thoracic Facet Joint(s) using Other Contrast (ICD-10-PCS; 2021-01-02)
PROC: 3E0T3BZ Introduction of Anesthetic Agent into Peripheral Nerves and Plexi, Percutaneous Approach (ICD-10-PCS; 2021-01-02)
PROC: 3E0T3BZ Introduction of Anesthetic Agent into Peripheral Nerves and Plexi, Percutaneous Approach (ICD-10-PCS; principal; 2021-01-02 08:30)
DX: M53.3 Sacrococcygeal disorders, not elsewhere classified (principal)
CPT/HCPCS: 76000-TC-FY

== ENCOUNTER → 2021-07-10 | Day surgery (SDC) | payer OTHER ==
[2021-07-03 10:38] VITALS: BMI 38.7
[~2021-07-10] MED LIST: ACETAMINOPHEN 1000 MG/100 ML VIAL IVPB ONE; BUPIVACAINE HCL/PF 2.5 MG/ML - 30 ML VIAL IJ ONE; EPINEPHrine/PF 1 MG/1 ML (1:1,000) AMPULE ONE; LACTATED RINGERS SOLUTION 1,000 ML IV SCH; MIDAZOLAM HCL 2 MG/2 ML SINGLE DOSE VIAL ONE; PROPOFOL 20 ML ONE; ROPIVACAINE HCL 0.5% 30ML VIAL ONE; ePHEDrine SULFATE 50 MG/1 ML AMPULE ONE; oxyCODONE HCL 5 MG TABLET PO PRN
[2021-07-10 12:31] VITALS: TEMP 97.9
[2021-07-10 13:05] VITALS: BP 138/65; PULSE 85
== END | disposition home or self-care (01) ==
LOC: FASU 06:22
PROVIDERS: ATTEND Orthopaedic Surgery Sports Medicine
PROC: 0RQK4ZZ Repair Left Shoulder Joint, Percutaneous Endoscopic Approach (ICD-10-PCS; 2021-07-10)
PROC: 0LM24ZZ Reattachment of Left Shoulder Tendon, Percutaneous Endoscopic Approach (ICD-10-PCS; principal; 2021-07-10 08:50)
PROC: 0RNK4ZZ Release Left Shoulder Joint, Percutaneous Endoscopic Approach (ICD-10-PCS; 2021-07-10 08:50)
PROC: 0RBK4ZZ Excision of Left Shoulder Joint, Percutaneous Endoscopic Approach (ICD-10-PCS; 2021-07-10 08:50)
DX: M75.122 Complete rotator cuff tear or rupture of left shoulder, not specified as traumatic (principal); M75.42 Impingement syndrome of left shoulder; M24.112 Other articular cartilage disorders, left shoulder; M66.822 Spontaneous rupture of other tendons, left upper arm; M65.812 Other synovitis and tenosynovitis, left shoulder; M75.02 Adhesive capsulitis of left shoulder
CPT/HCPCS: 82962; 94760

== ENCOUNTER 2024-05-23 18:27 | Emergency (ER) | payer OTHER ==
[2024-05-23 18:44] VITALS: BP 139/70; PULSE 72; RESP 18; TEMP 97.7; BMI 35.4
[2024-05-23] MEDS ORDERED: LIDOCAINE 4% PATCH TP ONE (19:17)
[2024-05-23] MEDS ORDERED: ACETAMINOPHEN 500 MG TABLET (FP) ONE (19:17)
[2024-05-23] MEDS ORDERED: diazePAM 2 MG TABLET ONE (19:19)
[2024-05-23] MEDS: diazePAM 2 MG TABLET PO ONE (19:23)
[2024-05-23] MEDS: LIDOCAINE 4% PATCH TP ONE (19:23)
[2024-05-23] MEDS: ACETAMINOPHEN 500 MG TABLET (FP) PO ONE (19:23)
[2024-05-23] MEDS ORDERED: LIDOCAINE PATCH REMOVAL MC SCH (22:00)
== END 2024-05-23 20:47 | disposition home or self-care (01) ==
LOC: JERFT 18:27
DX: M54.17 Radiculopathy, lumbosacral region (principal); M54.50 Low back pain, unspecified; M54.6 Pain in thoracic spine; R51.9 Headache, unspecified; M79.10 Myalgia, unspecified site
CPT/HCPCS: 93005; 93010; 99283-25

== ENCOUNTER 2024-07-11 20:55 | Observation (INO) | payer OTHER ==
[2024-07-11] MEDS ORDERED: KETOROLAC TROMETHAMINE 30 MG/1 ML VIAL ONE (21:31)
[2024-07-11] MEDS: KETOROLAC TROMETHAMINE 30 MG/1 ML VIAL IVPUSH ONE (21:45)
[2024-07-11 22:03] LABS: HEMATOCRIT 33.3 % (32.4-45.2); HEMOGLOBIN 10.6 G/dL (10.7-15.3); MCH 28.4 pg (25.7-33.7); MCHC 31.8 g/dl (32.0-36.0); MEAN CELL VOLUME 89.3 fl (80-96); MEAN PLT VOLUME 7.8 fl (7.5-11.1); PLATELET COUNT 336.1 10^3/uL (134-434); RBC 3.73 10^6/uL (3.60-5.2); RDW 14.4 % (11.6-15.6); WHITE BLOOD COUNT 7.1 10^3/uL (4.0-10.8)
[2024-07-11 22:27] LABS: ALBUMIN 3.5 g/dl (3.4-5.0); BILIRUBIN,TOTAL 0.8 mg/dl (0.2-1); CALCIUM 9.2 mg/dl (8.5-10.1); CREATININE 0.7 mg/dl (0.6-1.3); POTASSIUM 3.8 mmol/L (3.5-5.1); TOT PROT 6.6 g/dl (6.4-8.2)
[2024-07-11] MEDS ORDERED: ACETAMINOPHEN 325 MG TABLET (FP) PO PRN (23:34)
[2024-07-11] MEDS ORDERED: DOCUSATE SODIUM 100 MG CAPSULE (FP) PO PRN (23:34)
[2024-07-12 01:00] VITALS: BMI 34.0
[2024-07-12] MEDS: ACETAMINOPHEN 1000 MG/100 ML BAG IVPB PRN (01:09)
[2024-07-12] MEDS ORDERED: KETOROLAC TROMETHAMINE 15 MG/ML VIAL IVPUSH PRN (04:00)
[2024-07-12] MEDS: INSULIN ASPART SLIDING SCALE (NOVOLOG) 1 VIAL SQ SCH (06:18)
[2024-07-12] MEDS: PANTOPRAZOLE 40 MG TABLET PO SCH (07:27)
[2024-07-12] MEDS: ASPIRIN COATED 81 MG TABLET.EC PO SCH (09:17)
[2024-07-12] MEDS: LISINOPRIL 20 MG TABLET PO SCH (09:17)
[2024-07-12] MEDS: LIDOCAINE 5% TOPICAL PATCH TP SCH (09:17)
[2024-07-12] MEDS: amLODIPine BESYLATE 10 MG TABLET (FP) PO SCH (09:17)
[2024-07-12 09:42] LABS: CALCIUM 9.1 mg/dl (8.5-10.1); CREATININE 0.7 mg/dl (0.6-1.3); MAGNESIUM 1.8 mg/dL (1.8-2.4); PHOSPHOROUS 3.6 (2.5-4.9); POTASSIUM 3.8 mmol/L (3.5-5.1)
[2024-07-12] MEDS ORDERED: LISINOPRIL 20 MG TABLET PO SCH (10:00)
[2024-07-12 10:16] LABS: BASO % 0.8 % (0-2.0); EOS % 1.3 % (0-4.5); HEMATOCRIT 28.7 % (32.4-45.2); HEMOGLOBIN 9.5 GM/dL (10.7-15.3); LYMPH % 20.4 % (8-40); MCH 28.1 pg (25.7-33.7); MCHC 33.1 g/dl (32.0-36.0); MEAN CELL VOLUME 84.9 fl (80-96); MEAN PLT VOLUME 7.7 fl (7.5-11.1); MONO % 11.1 % (3.8-10.2); NEUT % 66.4 % (42.8-82.8); PLATELET COUNT 343 10^3/uL (134-434); RBC 3.38 M/mm3 (3.60-5.2); RDW 13.9 % (11.6-15.6); WHITE BLOOD COUNT 5.9 K/mm3 (4.0-10.0)
[2024-07-12 14:27] VITALS: BP 128/72; PULSE 82; RESP 19; TEMP 98
[2024-07-12] MEDS ORDERED: ATORVASTATIN CA 40 MG TABLET (FP) PO SCH (22:00)
[2024-07-12] MEDS ORDERED: LIDOCAINE PATCH REMOVAL MC SCH (22:00)
[2024-07-12] MEDS ORDERED: ACETAMINOPHEN 325 MG TABLET (FP) PO PRN (23:34)
== END 2024-07-12 17:20 | disposition home or self-care (01) ==
LOC: FER 20:55 → FM/S 22:35 → UNDOADMOB 07-12 00:06
PROVIDERS: ADMIT Internal Medicine; ATTEND Internal Medicine
PROC: 3E033NZ Introduction of Analgesics, Hypnotics, Sedatives into Peripheral Vein, Percutaneous Approach (ICD-10-PCS; principal; 2024-07-11)
PROC: 3E0333Z Introduction of Anti-inflammatory into Peripheral Vein, Percutaneous Approach (ICD-10-PCS; 2024-07-11)
DX: R07.9 Chest pain, unspecified (principal); I11.9 Hypertensive heart disease without heart failure; G89.29 Other chronic pain; K21.9 Gastro-esophageal reflux disease without esophagitis; I10 Essential (primary) hypertension; E78.5 Hyperlipidemia, unspecified; M19.012 Primary osteoarthritis, left shoulder; M19.011 Primary osteoarthritis, right shoulder; K76.0 Fatty (change of) liver, not elsewhere classified; Z95.5 Presence of coronary angioplasty implant and graft; E11.9 Type 2 diabetes mellitus without complications; E66.9 Obesity, unspecified; Z87.891 Personal history of nicotine dependence
CPT/HCPCS: 36415; 71045-TC-FY; 80048; 80053; 82550; 82962; 83735; 84100; 84484; 85025; 85027; 85651; 86140; 93005; 93306-TC; 96374; 96375; 97116-GP; 97162-GP; 99285-25; G0378; J0131